=== PATIENT | female | born 2000 | race Two or more races ===

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

== ENCOUNTER 2020-05-20 00:43 | Observation (INO) | payer MEDICAID ==
[~2020-05-20] VITALS: Ht 165.1 cm; Wt 56.7 kg
[2020-05-20 01:21] VITALS: BP 124/64
[2020-05-20 02:26] LABS: Urine Amorphous Crystal FEW /hpf (None Seen); Urine Bacteria MOD /hpf (None Seen); Urine Blood Negative /uL (Negative); Urine Mucus FEW (None Seen); Urine Specific Gravity 1.017 (1.001-1.035); Urine WBC 30 /hpf (0 - 5)
[2020-05-20] MEDS ORDERED: ACETAMINOPHEN 325 MG TAB PO ONE (02:30)
[2020-05-20] MEDS ORDERED: SODIUM CHLORIDE 0.9% 500 ML IV ONE (02:30)
[2020-05-20] MEDS ORDERED: cefTRIAXone 1GM/50ML D5W 50 ML IV ONE (02:50)
[2020-05-20] MEDS ORDERED: SODIUM CHLORIDE 0.9% 1,000 ML IV SCH (03:00)
[2020-05-20] MEDS ORDERED: PREN-129 OR (05:31)
[2020-08-27] MEDS ORDERED: PREN1TAB52 PO (22:02)
== END 2020-05-20 07:38 | disposition home or self-care (01) ==
LOC: ER 00:47 → LDRP 01:07
PROVIDERS: ADMIT Obstetrics & Gynecology; ATTEND Obstetrics & Gynecology
DX: O23.42 Unspecified infection of urinary tract in pregnancy, second trimester (principal); Z20.822 Contact with and (suspected) exposure to COVID-19; O26.892 Other specified pregnancy related conditions, second trimester; R10.32 Left lower quadrant pain; R51.9 Headache, unspecified; R50.9 Fever, unspecified; O36.8320 Maternal care for abnormalities of the fetal heart rate or rhythm, second trimester, not applicable or unspecified; Z3A.20 20 weeks gestation of pregnancy
CPT/HCPCS: 36415; 59025; 76815; 81001; 81002; 87086; 87426; 94760; 96361; 96365; G0378; J0696; J7030; U0003; 96360

== ENCOUNTER → 2020-05-29 | Outpatient (CLI) | payer MEDICAID ==
[~2020-05-29] MED LIST: PREN-129 OR
== END | disposition home or self-care (01) ==
LOC: OB 14:37
PROVIDERS: ATTEND Obstetrics & Gynecology
DX: O00.01 Abdominal pregnancy with intrauterine pregnancy (principal); Z3A.21 21 weeks gestation of pregnancy
CPT/HCPCS: 76805

== ENCOUNTER 2020-08-27 08:55 | Observation (INO) | payer MEDICAID ==
[~2020-08-27] VITALS: Ht 165.1 cm; Wt 67.1 kg
[2020-08-27] MEDS ORDERED: TERBUTALINE SULFATE 1 MG/ML 1ML VIAL SC SCH (11:00)
[2020-08-27] MEDS ORDERED: PREN1TAB52 PO ×2 (22:02)
== END 2020-08-27 12:00 | disposition home or self-care (01) ==
LOC: LDRP 08:55
PROVIDERS: ADMIT Specialist; ATTEND Specialist
DX: O40.3XX0 Polyhydramnios, third trimester, not applicable or unspecified (principal); O60.03 Preterm labor without delivery, third trimester; Z3A.34 34 weeks gestation of pregnancy
CPT/HCPCS: 59025; 81002; G0378; J3105

== ENCOUNTER 2020-08-27 21:40 | Observation (INO) | payer MEDICAID ==
[~2020-08-27] VITALS: Ht 165.1 cm; Wt 67.1 kg
[2020-08-27] MEDS ORDERED: PREN1TAB52 PO ×2 (22:02)
[2020-08-27 22:26] LABS: Urine Bacteria NONE SEEN /hpf (None Seen); Urine Blood Negative /uL (Negative); Urine Specific Gravity 1.005 (1.001-1.035); Urine WBC 14 /hpf (0 - 5)
[2020-08-27 22:38] LABS: Amphetamine Screen, Urine NEGATIVE (NEGATIVE); Barbiturate Scree,Urine NEGATIVE (NEGATIVE); Benzodiazephine Screen, Urine NEGATIVE (NEGATIVE); Cannabinoid Screen, Urine NEGATIVE (NEGATIVE); Cocaine Screen, Urine NEGATIVE (NEGATIVE); Opiate Scree,Urine NEGATIVE (NEGATIVE); Phencyclidine Screen, Urine NEGATIVE (NEGATIVE)
== END 2020-08-27 23:38 | disposition home or self-care (01) ==
LOC: LDRP 21:40
PROVIDERS: ADMIT Specialist; ATTEND Specialist
DX: O60.03 Preterm labor without delivery, third trimester (principal); O23.43 Unspecified infection of urinary tract in pregnancy, third trimester; Z3A.35 35 weeks gestation of pregnancy; Z79.899 Other long term (current) drug therapy
CPT/HCPCS: 59025; 80307; 81001; 81002; G0378

== ENCOUNTER 2020-09-12 19:49 | Observation (INO) | payer MEDICAID ==
[~2020-09-12] VITALS: Ht 165.1 cm; Wt 67.1 kg
[~2020-09-12 19:49] MED LIST changes: +PREN1TAB52 PO
[2020-09-12] MEDS ORDERED: cefTRIAXone 1GM/50ML D5W 50 ML IV ONE (21:00)
[2020-09-12] MEDS ORDERED: SODIUM CHLORIDE 0.9% 1,000 ML IV SCH (21:00)
[2020-09-12 22:31] LABS: Urine Bacteria NONE SEEN /hpf (None Seen); Urine Blood TRACE /uL (Negative); Urine Specific Gravity 1.007 (1.001-1.035); Urine WBC 47 /hpf (0 - 5); Urine WBC Clumps PRESENT /hpf (None Seen)
[2020-09-12] MEDS ORDERED: CEPH-322 PO (23:24)
== END 2020-09-13 00:23 | disposition home or self-care (01) ==
LOC: LDRP 19:49
PROVIDERS: ADMIT Specialist; ATTEND Specialist
DX: O26.893 Other specified pregnancy related conditions, third trimester (principal); R10.9 Unspecified abdominal pain; Z3A.37 37 weeks gestation of pregnancy
CPT/HCPCS: 59025; 81001; 81002; 87086; 94760; 96361; 96365; G0378; J0696; J7030; 96360

== ENCOUNTER 2020-09-17 11:28 | Observation (INO) | payer MEDICAID ==
[~2020-09-17 11:28] MED LIST changes: +CEPH-322 PO
== END 2020-09-17 13:45 | disposition home or self-care (01) ==
LOC: OB 11:28 → LDRP 12:22
PROVIDERS: ADMIT Obstetrics & Gynecology; ATTEND Obstetrics & Gynecology
DX: O69.81X1 Labor and delivery complicated by cord around neck, without compression, fetus 1 (principal); Z3A.37 37 weeks gestation of pregnancy
CPT/HCPCS: 59025; 76818; 81002; G0378

== ENCOUNTER 2020-09-20 08:51 | Observation (INO) | payer MEDICAID | END 2020-09-20 10:00 | disposition home or self-care (01) | LOC: LDRP 08:51 | PROVIDERS: ADMIT Obstetrics & Gynecology; ATTEND Obstetrics & Gynecology | DX: O69.81X1 Labor and delivery complicated by cord around neck, without compression, fetus 1 (principal); Z3A.38 38 weeks gestation of pregnancy; O62.9 Abnormality of forces of labor, unspecified | CPT/HCPCS: 59025; 76818; 81002; G0378 ==

== ENCOUNTER 2020-09-23 13:25 | Observation (INO) | payer MEDICAID ==
[~2020-09-23] VITALS: Ht 165.1 cm; Wt 66.2 kg
== END 2020-09-23 15:08 | disposition home or self-care (01) ==
LOC: LDRP 13:25
PROVIDERS: ADMIT Obstetrics & Gynecology; ATTEND Obstetrics & Gynecology
DX: O69.81X0 Labor and delivery complicated by cord around neck, without compression, not applicable or unspecified (principal); Z3A.38 38 weeks gestation of pregnancy
CPT/HCPCS: 59025; 76818; 81002; 94760; G0378

== ENCOUNTER 2020-09-26 13:30 | Observation (INO) | payer MEDICAID ==
[~2020-09-26 13:30] MED LIST changes: -CEPH-322 PO
== END 2020-09-26 15:27 | disposition home or self-care (01) ==
LOC: LDRP 13:30
PROVIDERS: ADMIT Specialist; ATTEND Specialist
DX: O69.81X0 Labor and delivery complicated by cord around neck, without compression, not applicable or unspecified (principal); Z3A.39 39 weeks gestation of pregnancy
CPT/HCPCS: 59025; 76818; 81002; 94760; G0378

== ENCOUNTER 2020-09-30 13:28 | Observation (INO) | payer MEDICAID | END 2020-09-30 15:20 | disposition home or self-care (01) | LOC: LDRP 13:28 | PROVIDERS: ADMIT Obstetrics & Gynecology; ATTEND Obstetrics & Gynecology | DX: O69.81X0 Labor and delivery complicated by cord around neck, without compression, not applicable or unspecified (principal); Z3A.39 39 weeks gestation of pregnancy | CPT/HCPCS: 59025; 76818; 81002; G0378 ==

== ENCOUNTER 2020-10-01 06:50 | Inpatient (IN) | payer MEDICAID ==
[~2020-10-01] VITALS: Ht 30.5 cm; Wt 0.5 kg
[~2020-10-01 06:50] MED LIST changes: -PREN-129 OR
[2020-10-01] MEDS ORDERED: PROMETHAZINE HCL 25 MG/ML 1ML IM PRN (11:00)
[2020-10-01] MEDS ORDERED: PHISODERM TOP SOLN 240ML BTL TOP PRN (11:00)
[2020-10-01] MEDS ORDERED: NALBUPHINE HCL 10 MG/1ml INJECTION IV PRN (11:00)
[2020-10-01] MEDS ORDERED: PENICILLIN G POT 5MIL/D5 50ML 50 ML IV ONE (11:00)
[2020-10-01] MEDS ORDERED: DERMOPLAST 60ML BOTTLE TOP PRN (11:00)
[2020-10-01] MEDS ORDERED: LIDOCAINE 2%HCL (LOCAL ANESTH.) INJ 20ML MDV IJ PRN (11:00)
[2020-10-01] MEDS ORDERED: WITCH HAZEL-GLYCERIN PAD TOP PRN (11:00)
[2020-10-01] MEDS ORDERED: miSOPROStol 50 MCG per PRE-CUT 1/2 TAB PO PRN (11:00)
[2020-10-01] MEDS: LACTATED RINGER'S 1,000 ML IV SCH ×3 (11:20→22:11)
[2020-10-01 12:38] LABS: Basophils # (auto) 0 10 ^3/uL (0-0.2); Basophils % (auto) 0.2 % (0.0-2.0); Eosinophils # (auto) 0 10 ^3/uL (0-0.8); Eosinophils % (auto) 0.3 % (0.0-7.0); Hematocrit 32.1 % (36.0-46.0); Lymphocytes # (auto) 1.8 10 ^3/uL (0.4-5.4); Mean Corpuscular Hemoglobin 27.7 pg (28.0-32.0); Mean Corpuscular Hgb Conc. 34.3 g/dL (32.0-36.0); Mean Corpuscular Volume 80.8 fL (80.0-100.0); Monocytes # (auto) 0.5 10 ^3/uL (0-1.3); Monocytes % (auto) 3.6 % (0.0-12.0); Neutrophils # (auto) 10.3 10 ^3/uL (1.6-8.6); Neutrophils % (auto) 81.9 % (37.0-80.0); Red Blood Cells 3.97 10^6/uL (4.0-5.20); Red Cell Distribution Width 15.6 % (11.8-14.3); White Blood Cell 12.6 10^3/uL (4.4-10.8)
[2020-10-01 12:49] LABS: Potassium 3.5 mmol/L (3.5-5.1)
[2020-10-01 12:55] LABS: Albumin 2.9 g/dL (3.4-5.0); BUN/Creatinine Ratio 6.5; Bilirubin, Total 0.8 mg/dL (0.2-1.0); Calcium 8.4 mg/dL (8.5-10.1); Total Protein 6.6 g/dL (6.4-8.2)
[2020-10-01 13:21] LABS: Urine Bacteria FEW /hpf (None Seen); Urine Blood TRACE /uL (Negative); Urine Mucus FEW (None Seen); Urine Specific Gravity 1.011 (1.001-1.035); Urine WBC 25 /hpf (0 - 5)
[2020-10-01 13:33] LABS: Alcohol, Urine < 3.0 mg/dL (0-10); Amphetamine Screen, Urine NEGATIVE (NEGATIVE); Barbiturate Scree,Urine NEGATIVE (NEGATIVE); Benzodiazephine Screen, Urine NEGATIVE (NEGATIVE); Cannabinoid Screen, Urine NEGATIVE (NEGATIVE); Cocaine Screen, Urine NEGATIVE (NEGATIVE); Opiate Scree,Urine NEGATIVE (NEGATIVE); Phencyclidine Screen, Urine NEGATIVE (NEGATIVE)
[2020-10-01 13:33] LABS: INR 0.92 (0.9-1.15); Partial Thromboplastin Time 26.2 sec (23.0-31.2)
[2020-10-01] MEDS ORDERED: LACT. RINGERS/OXYTOCIN 20UNITS 500 ML IV ONE ×3 (13:45→23:45)
[2020-10-01] MEDS ORDERED: BUTORPHANOL TARTRATE 2 MG/1 ML VIAL IV PRN ×2 (14:45)
[2020-10-01] MEDS ORDERED: LACTATED RINGER'S 1,000 ML IV ONE (15:30)
[2020-10-01] MEDS ORDERED: LIDOCAINE HCL 2 %PF INJ 10ML AMP IJ ONE (15:30)
[2020-10-01] MEDS ORDERED: fentaNYL CITRATE 100 MCG/2 ML VL IV ONE (15:30)
[2020-10-01] MEDS ORDERED: ROPIVACAINE HCL 200 ML EPI SCH (15:30)
[2020-10-01] MEDS ORDERED: NALOXONE HCL 0.4 MG/ML VIAL IV ONE (15:30)
[2020-10-01] MEDS ORDERED: ePHEDrine SULFATE 50 MG/ML AMP IV ONE (15:30)
[2020-10-01] MEDS: PENICILLIN G POTASSIUM 2,500,000 UNITS in D5W 5% 50 ML IV SCH ×2 (16:49→21:23)
[2020-10-01] MEDS ORDERED: ACETAMINOPHEN 325 MG TAB PO PRN (23:45)
[2020-10-02] MEDS ORDERED: LACT. RINGERS/OXYTOCIN 20UNITS 500 ML IV ONE (00:15)
[2020-10-02] MEDS: IBUPROFEN 600 MG TAB PO PRN ×2 (01:15→08:11)
[2020-10-02 03:06] VITALS: BP 109/55
[2020-10-02 07:09] VITALS: BP 109/58
[2020-10-02] MEDS: DOCUSATE SOD 100 MG CAP PO SCH ×2 (11:14→22:10)
[2020-10-02 11:15] VITALS: BP 112/68
[2020-10-02 15:08] VITALS: BP 118/60
[2020-10-02 19:00] VITALS: BP 115/66
[2020-10-02 23:00] VITALS: BP 111/64
[2020-10-03 03:00] VITALS: BP 107/52
[2020-10-03 07:02] VITALS: BP 120/74
[2020-10-03 10:50] VITALS: BP 120/74
[2020-10-03 11:00] VITALS: BP 116/72
== END 2020-10-03 12:20 | disposition home or self-care (01) | DRG 560 ==
LOC: LDRP 06:50 → OBSVTOIN 10:35 → LDRP 11:32
PROVIDERS: ADMIT Specialist; ATTEND Specialist
PROC: 10E0XZZ Delivery of Products of Conception, External Approach (ICD-10-PCS; principal; 2020-10-01)
PROC: 3E0P7VZ Introduction of Hormone into Female Reproductive, Via Natural or Artificial Opening (ICD-10-PCS; 2020-10-01)
PROC: 10907ZC Drainage of Amniotic Fluid, Therapeutic from Products of Conception, Via Natural or Artificial Opening (ICD-10-PCS; 2020-10-01)
PROC: 0KQM0ZZ Repair Perineum Muscle, Open Approach (ICD-10-PCS; 2020-10-01)
PROC: 3E0R3BZ Introduction of Anesthetic Agent into Spinal Canal, Percutaneous Approach (ICD-10-PCS; 2020-10-01)
PROC: 00HU33Z Insertion of Infusion Device into Spinal Canal, Percutaneous Approach (ICD-10-PCS; 2020-10-01)
DX: O69.81X0 Labor and delivery complicated by cord around neck, without compression, not applicable or unspecified (principal); O70.1 Second degree perineal laceration during delivery; Z20.822 Contact with and (suspected) exposure to COVID-19; Z37.0 Single live birth; Z3A.39 39 weeks gestation of pregnancy
CPT/HCPCS: 36415; 59025; 59409; 62282; 76815; 80053; 80307; 81001; 81002; 84112; 85025; 85049; 85610; 85730; 86850; 86900; 86901; 87426; 94760; 96360; 96361; 96365; 96366; G0378; J2540; J2590; J7060

== ENCOUNTER 2021-08-22 20:53 | Emergency (ER) | payer MEDICAID ==
[~2021-08-22] VITALS: Ht 165.1 cm; Wt 57.6 kg
[2021-08-22 21:50] LABS: Basophils # (auto) 0.1 10 ^3/uL (0-0.2); Basophils % (auto) 0.6 % (0.0-2.0); Eosinophils # (auto) 0.1 10 ^3/uL (0-0.8); Eosinophils % (auto) 1.4 % (0.0-7.0); Hematocrit 34.1 % (36.0-46.0); Hemoglobin 11.5 g/dL (12.2-16.2); Lymphocytes # (auto) 1.3 10 ^3/uL (0.4-5.4); Lymphocytes % (auto) 14.4 % (10.0-50.0); Mean Corpuscular Hemoglobin 27.2 pg (28.0-32.0); Mean Corpuscular Hgb Conc. 33.7 g/dL (32.0-36.0); Mean Corpuscular Volume 80.7 fL (80.0-100.0); Monocytes # (auto) 0.6 10 ^3/uL (0-1.3); Monocytes % (auto) 7.1 % (0.0-12.0); Neutrophils # (auto) 6.7 10 ^3/uL (1.6-8.6); Neutrophils % (auto) 76.5 % (37.0-80.0); Red Blood Cells 4.23 10^6/uL (4.0-5.20); Red Cell Distribution Width 13.4 % (11.8-14.3); White Blood Cell 8.8 10^3/uL (4.4-10.8)
[2021-08-22 22:08] LABS: BUN/Creatinine Ratio 13.1; Calcium 9.2 mg/dL (8.5-10.1); Potassium 4.1 mmol/L (3.5-5.1)
[2021-08-22 22:27] LABS: Urine Bacteria FEW /hpf (None Seen); Urine Blood 3+ /uL (Negative); Urine Specific Gravity 1.011 (1.001-1.035); Urine WBC 43 /hpf (0 - 5)
[2021-08-23 04:33] VITALS: BP 120/66
== END 2021-08-23 05:44 | disposition home or self-care (01) ==
LOC: ER 21:15
DX: N93.8 Other specified abnormal uterine and vaginal bleeding (principal)
CPT/HCPCS: 36415; 80048; 81001; 84702; 85025; 86850; 86900; 86901

== ENCOUNTER 2021-10-23 21:29 | Emergency (ER) | payer MEDICAID | END 2021-10-24 01:55 | disposition left against medical advice (07) | LOC: ER 21:29 | DX: O20.8 Other hemorrhage in early pregnancy (principal); Z3A.00 Weeks of gestation of pregnancy not specified; Z53.21 Procedure and treatment not carried out due to patient leaving prior to being seen by health care provider ==

== ENCOUNTER 2021-12-22 20:13 | Emergency (ER) | payer MEDICAID ==
[~2021-12-22] VITALS: Ht 165.1 cm; Wt 54.5 kg
[2021-12-22 20:42] VITALS: BP 106/72
[2021-12-22] MEDS ORDERED: ACETAMINOPHEN 325 MG TAB PO ONE (21:45)
[2021-12-22 22:04] LABS: Urine Amorphous Crystal FEW /hpf (None Seen); Urine Bacteria FEW /hpf (None Seen); Urine Blood Negative /uL (Negative); Urine Mucus FEW (None Seen); Urine Specific Gravity 1.016 (1.001-1.035); Urine WBC 10 /hpf (0 - 5)
[2021-12-22 23:15] LABS: Basophils # (auto) 0 10 ^3/uL (0-0.2); Basophils % (auto) 0.4 % (0.0-2.0); Eosinophils # (auto) 0.1 10 ^3/uL (0-0.8); Eosinophils % (auto) 0.6 % (0.0-7.0); Hematocrit 32.7 % (36.0-46.0); Hemoglobin 10.7 g/dL (12.2-16.2); Lymphocytes # (auto) 0.9 10 ^3/uL (0.4-5.4); Lymphocytes % (auto) 9.8 % (10.0-50.0); Mean Corpuscular Hemoglobin 26.2 pg (28.0-32.0); Mean Corpuscular Hgb Conc. 32.8 g/dL (32.0-36.0); Monocytes # (auto) 0.5 10 ^3/uL (0-1.3); Monocytes % (auto) 5.1 % (0.0-12.0); Neutrophils # (auto) 7.9 10 ^3/uL (1.6-8.6); Neutrophils % (auto) 84.1 % (37.0-80.0); Red Blood Cells 4.09 10^6/uL (4.0-5.20); Red Cell Distribution Width 15.1 % (11.8-14.3); White Blood Cell 9.5 10^3/uL (4.4-10.8)
[2021-12-22 23:34] LABS: Albumin 3.2 g/dL (3.4-5.0); Calcium 8.5 mg/dL (8.5-10.1); Potassium 3.8 mmol/L (3.5-5.1)
[2021-12-22 23:36] LABS: BUN/Creatinine Ratio 15.6
[2021-12-22 23:39] LABS: Bilirubin, Total 0.8 mg/dL (0.2-1.0); Total Protein 7.3 g/dL (6.4-8.2)
[2021-12-23] MEDS ORDERED: NITR-87 PO (02:59)
[2021-12-23] MEDS ORDERED: NITROFURANTOIN 100 mg CAP PO ONE (03:00)
== END 2021-12-23 05:03 | disposition home or self-care (01) ==
LOC: ER 20:16
DX: O23.42 Unspecified infection of urinary tract in pregnancy, second trimester (principal); N39.0 Urinary tract infection, site not specified; R51.9 Headache, unspecified; Z79.899 Other long term (current) drug therapy; Z3A.17 17 weeks gestation of pregnancy; Z20.822 Contact with and (suspected) exposure to COVID-19
CPT/HCPCS: 36415; 80053; 81001; 81025; 84702; 85025

== ENCOUNTER → 2021-12-29 | Outpatient (CLI) | payer MEDICAID ==
[~2021-12-29] MED LIST changes: +NITR-87 PO
== END | disposition home or self-care (01) ==
LOC: LAB 13:36
PROVIDERS: ATTEND Obstetrics & Gynecology
DX: Z34.80 Encounter for supervision of other normal pregnancy, unspecified trimester (principal); Z3A.00 Weeks of gestation of pregnancy not specified

== ENCOUNTER 2022-02-17 09:23 | Observation (INO) | payer MEDICAID ==
[~2022-02-17] VITALS: Ht 165.1 cm; Wt 56.0 kg
[2022-02-17 09:52] VITALS: BP 105/70
[2022-02-17] MEDS ORDERED: ceFAZolin 2 GM in D5W 5% 100 ML IV ONE (12:15)
[2022-02-17] MEDS ORDERED: LACTATED RINGER'S 1,000 ML IV ONE ×2 (12:15)
[2022-02-17 12:51] LABS: Urine Bacteria FEW /hpf (None Seen); Urine Blood 1+ /uL (Negative); Urine Specific Gravity 1.025 (1.001-1.035); Urine WBC 7 /hpf (0 - 5)
[2022-02-17] MEDS ORDERED: NALBUPHINE HCL 10 MG/1ml INJECTION IV ONE (13:15)
[2022-02-17 13:29] LABS: Basophils # (auto) 0 10 ^3/uL (0-0.2); Eosinophils # (auto) 0 10 ^3/uL (0-0.8); Eosinophils % (auto) 0.2 % (0.0-7.0); Hemoglobin 9.9 g/dL (12.2-16.2); Lymphocytes # (auto) 0.8 10 ^3/uL (0.4-5.4); Monocytes # (auto) 0.4 10 ^3/uL (0-1.3); Neutrophils # (auto) 5.7 10 ^3/uL (1.6-8.6); Nucleated Red Blood Cells % 0.1 %; Red Cell Distribution Width 15.1 % (11.8-14.3); White Blood Cell 6.9 10^3/uL (4.4-10.8)
[2022-02-17 13:31] LABS: Basophils % (auto) 0.3 % (0.0-2.0); Hematocrit 30.5 % (36.0-46.0); Lymphocytes % (auto) 11.7 % (10.0-50.0); Mean Corpuscular Hemoglobin 25.6 pg (28.0-32.0); Mean Corpuscular Hgb Conc. 32.4 g/dL (32.0-36.0); Mean Corpuscular Volume 79.2 fL (80.0-100.0); Monocytes % (auto) 5.2 % (0.0-12.0); Neutrophils % (auto) 82.6 % (37.0-80.0); Red Blood Cells 3.85 10^6/uL (4.0-5.20)
[2022-02-17 14:18] LABS: Albumin 2.9 g/dL (3.4-5.0); BUN/Creatinine Ratio 8.6; Bilirubin, Total 0.5 mg/dL (0.2-1.0); Calcium 8.5 mg/dL (8.5-10.1); Potassium 3.2 mmol/L (3.5-5.1); Total Protein 7.2 g/dL (6.4-8.2)
[2022-02-17] MEDS ORDERED: NALBUPHINE HCL 10 MG/1ml INJECTION IV PRN (16:15)
[2022-02-17] MEDS ORDERED: POTASSIUM CHL 20 Meq TABLET PO ONE ×2 (17:30→17:34)
== END 2022-02-17 20:00 | disposition home or self-care (01) ==
LOC: ER 09:23 → LDRP 10:27
PROVIDERS: ADMIT Obstetrics & Gynecology; ATTEND Obstetrics & Gynecology
DX: O99.891 Other specified diseases and conditions complicating pregnancy (principal); Z20.822 Contact with and (suspected) exposure to COVID-19; N13.30 Unspecified hydronephrosis; M54.9 Dorsalgia, unspecified; O99.512 Diseases of the respiratory system complicating pregnancy, second trimester; J10.1 Influenza due to other identified influenza virus with other respiratory manifestations; O21.2 Late vomiting of pregnancy; O99.112 Other diseases of the blood and blood-forming organs and certain disorders involving the immune mechanism complicating pregnancy, second trimester; D84.9 Immunodeficiency, unspecified; O26.892 Other specified pregnancy related conditions, second trimester; R50.9 Fever, unspecified; Z3A.25 25 weeks gestation of pregnancy
CPT/HCPCS: 36415; 59025; 76775; 76805; 80053; 81001; 81002; 85025; 87426; 87804; 94760; 96361; 96365; 96366; 96375; 96376; 99284; G0378; J0690; J2300; J7060; 96360; 96374

== ENCOUNTER 2022-03-24 22:00 | Observation (INO) | payer MEDICAID ==
[~2022-03-24] VITALS: Ht 165.1 cm; Wt 60.3 kg
[2022-03-24] MEDS ORDERED: SODIUM CITR/CITRIC ACID ORAL SOLN 30 ML PO SCH (22:40)
[2022-03-24 23:00] LABS: Urine Blood Negative /uL (Negative); Urine Specific Gravity 1.017 (1.001-1.035)
== END 2022-03-24 23:55 | disposition home or self-care (01) ==
LOC: LDRP 22:00
PROVIDERS: ADMIT Obstetrics & Gynecology; ATTEND Obstetrics & Gynecology
DX: O26.893 Other specified pregnancy related conditions, third trimester (principal); R10.10 Upper abdominal pain, unspecified; R10.13 Epigastric pain; Z3A.30 30 weeks gestation of pregnancy
CPT/HCPCS: 59025; 81002; 81003; G0378; 81001

== ENCOUNTER → 2022-05-07 | Outpatient (CLI) | payer MEDICAID ==
[2022-05-07 11:41] LABS: Basophils # (auto) 0 10 ^3/uL (0-0.2); Eosinophils # (auto) 0 10 ^3/uL (0-0.8); Hemoglobin 9.3 g/dL (12.2-16.2); Lymphocytes # (auto) 1.2 10 ^3/uL (0.4-5.4); Lymphocytes % (auto) 12.7 % (10.0-50.0); Monocytes # (auto) 0.3 10 ^3/uL (0-1.3); White Blood Cell 9.6 10^3/uL (4.4-10.8)
[2022-05-07 11:43] LABS: Basophils % (auto) 0.2 % (0.0-2.0); Eosinophils % (auto) 0.5 % (0.0-7.0); Hematocrit 29.2 % (36.0-46.0); Mean Corpuscular Hemoglobin 23.6 pg (28.0-32.0); Mean Corpuscular Hgb Conc. 31.9 g/dL (32.0-36.0); Mean Corpuscular Volume 73.9 fL (80.0-100.0); Monocytes % (auto) 3.4 % (0.0-12.0); Neutrophils % (auto) 83.2 % (37.0-80.0); Nucleated Red Blood Cells % 0.1 %; Red Blood Cells 3.95 10^6/uL (4.0-5.20); Red Cell Distribution Width 18.6 % (11.8-14.3)
[2022-05-08 07:06] LABS: RPR Non Reactive (Non Reactive)
== END | disposition home or self-care (01) ==
LOC: LAB 11:17
PROVIDERS: ATTEND Obstetrics & Gynecology
DX: Z34.80 Encounter for supervision of other normal pregnancy, unspecified trimester (principal); Z3A.00 Weeks of gestation of pregnancy not specified
CPT/HCPCS: 36415; 84112; 85025; 86592

== ENCOUNTER 2022-05-12 21:05 | Observation (INO) | payer MEDICAID ==
[2022-05-12] MEDS ORDERED: CEPH-510 PO (22:12)
[2022-05-12 22:16] LABS: Urine Bacteria MANY /hpf (None Seen); Urine Blood 1+ /uL (Negative); Urine Mucus FEW (None Seen); Urine WBC 106 /hpf (0 - 5)
== END 2022-05-12 22:34 | disposition home or self-care (01) ==
LOC: LDRP 21:05
PROVIDERS: ADMIT Obstetrics & Gynecology; ATTEND Obstetrics & Gynecology
DX: O23.43 Unspecified infection of urinary tract in pregnancy, third trimester (principal); O26.853 Spotting complicating pregnancy, third trimester; O46.93 Antepartum hemorrhage, unspecified, third trimester; N93.9 Abnormal uterine and vaginal bleeding, unspecified; O26.893 Other specified pregnancy related conditions, third trimester; R10.30 Lower abdominal pain, unspecified; Z3A.37 37 weeks gestation of pregnancy
CPT/HCPCS: 59025; 81001; 81002; 87086; 94760; G0378

== ENCOUNTER 2022-06-01 14:56 | Inpatient (IN) | payer MEDICAID ==
[~2022-06-01] VITALS: Ht 165.1 cm; Wt 66.7 kg
[~2022-06-01 14:56] MED LIST changes: +CEPH-510 PO; -NITR-87 PO
[2022-06-01] MEDS ORDERED: PHISODERM TOP SOLN 240ML BTL TOP PRN (16:15)
[2022-06-01] MEDS ORDERED: WITCH HAZEL-GLYCERIN PAD TOP PRN (16:15)
[2022-06-01] MEDS ORDERED: LIDOCAINE 2%HCL (LOCAL ANESTH.) INJ 20ML MDV IJ PRN (16:15)
[2022-06-01] MEDS ORDERED: PROMETHAZINE HCL 25 MG/ML 1ML IV PRN (16:15)
[2022-06-01] MEDS ORDERED: BUTORPHANOL TARTRATE 2 MG/1 ML VIAL IV PRN ×2 (16:15)
[2022-06-01] MEDS ORDERED: DERMOPLAST 60ML BOTTLE TOP PRN (16:15)
[2022-06-01] MEDS ORDERED: LACT. RINGERS/OXYTOCIN 20UNITS 500 ML IV ONE ×4 (17:00→22:15)
[2022-06-01 17:08] LABS: Basophils # (auto) 0 10 ^3/uL (0-0.2); Basophils % (auto) 0.2 % (0.0-2.0); Eosinophils # (auto) 0 10 ^3/uL (0-0.8); Eosinophils % (auto) 0.1 % (0.0-7.0); Hematocrit 32.2 % (36.0-46.0); Lymphocytes # (auto) 1.2 10 ^3/uL (0.4-5.4); Mean Corpuscular Hemoglobin 22.3 pg (28.0-32.0); Mean Corpuscular Hgb Conc. 31.2 g/dL (32.0-36.0); Mean Corpuscular Volume 71.3 fL (80.0-100.0); Monocytes # (auto) 0.5 10 ^3/uL (0-1.3); Neutrophils # (auto) 10.4 10 ^3/uL (1.6-8.6); Neutrophils % (auto) 85.7 % (37.0-80.0); Nucleated Red Blood Cells % 0.1 %; Red Blood Cells 4.51 10^6/uL (4.0-5.20); White Blood Cell 12.1 10^3/uL (4.4-10.8)
[2022-06-01 17:10] LABS: Red Cell Distribution Width 20.1 % (11.8-14.3)
[2022-06-01] MEDS ORDERED: NALOXONE HCL 0.4 MG/ML VIAL IV ONE ×2 (17:15→20:00)
[2022-06-01] MEDS ORDERED: fentaNYL CITRATE 100 MCG/2 ML VL IV ONE ×2 (17:15→20:00)
[2022-06-01] MEDS ORDERED: LIDOCAINE 1%-Mpf/Epinephrine 1:200,000 IJ ONE (17:15)
[2022-06-01] MEDS ORDERED: ROPIVACAINE HCL 200 ML EPI SCH ×2 (17:15→20:00)
[2022-06-01] MEDS ORDERED: LACTATED RINGER'S 1,000 ML IV ONE (17:15)
[2022-06-01] MEDS ORDERED: ePHEDrine SULFATE 50 MG/ML AMP IV ONE ×2 (17:15→20:00)
[2022-06-01] MEDS ORDERED: LIDOCAINE HCL 2 %PF INJ 10ML AMP IJ ONE (17:15)
[2022-06-01] MEDS ORDERED: LACTATED RINGER'S 500 ML IV ONE ×2 (17:15→20:00)
[2022-06-01 17:20] LABS: Albumin 2.7 g/dL (3.4-5.0); Calcium 8.8 mg/dL (8.5-10.1); Potassium 3.7 mmol/L (3.5-5.1)
[2022-06-01 17:22] LABS: BUN/Creatinine Ratio 10.4
[2022-06-01] MEDS: LACTATED RINGER'S 1,000 ML IV SCH ×2 (17:22→22:04)
[2022-06-01 17:25] LABS: Bilirubin, Total 0.9 mg/dL (0.2-1.0); Total Protein 7.4 g/dL (6.4-8.2)
[2022-06-01 17:26] LABS: INR 0.91 (0.9-1.15); Partial Thromboplastin Time 28.8 sec (24.6-33.4)
[2022-06-01 18:48] LABS: Urine Bacteria FEW /hpf (None Seen); Urine Blood Negative /uL (Negative); Urine Specific Gravity 1.015 (1.001-1.035); Urine WBC 56 /hpf (0 - 5)
[2022-06-01] MEDS ORDERED: Lidocaine W-Epinephrine 1.5%-1:200,000 INJ 10ml Vial ONE (18:51)
[2022-06-01 18:53] LABS: Alcohol, Urine < 3.0 mg/dL (0-10); Amphetamine Screen, Urine NEGATIVE (NEGATIVE); Barbiturate Scree,Urine NEGATIVE (NEGATIVE); Benzodiazephine Screen, Urine NEGATIVE (NEGATIVE); Cannabinoid Screen, Urine NEGATIVE (NEGATIVE); Cocaine Screen, Urine NEGATIVE (NEGATIVE); Opiate Scree,Urine NEGATIVE (NEGATIVE); Phencyclidine Screen, Urine NEGATIVE (NEGATIVE)
[2022-06-01] MEDS ORDERED: SODIUM CHLORIDE 0.9% 500 ML IV PRN (20:00)
[2022-06-01] MEDS ORDERED: miSOPROStol 100 mcg TAB SL PRN (21:45)
[2022-06-01] MEDS ORDERED: TRANEXAMIC ACID 1,000 MG in SODIUM CHL 0.9% 100 ML IV PRN (21:45)
[2022-06-01] MEDS ORDERED: ACETAMINOPHEN 325 MG TAB PO PRN (21:45)
[2022-06-01] MEDS ORDERED: diphenhdrAMINE HCL 50 MG/1 ML VL IV PRN (21:45)
[2022-06-01] MEDS ORDERED: CARBOPROST TROMETHAMINE 250 MCG/1ML VIAL IM PRN (21:45)
[2022-06-01] MEDS ORDERED: METHYLERGONOVINE MALEATE 0.2 MG/ML AMP IM PRN (21:45)
[2022-06-01] MEDS ORDERED: ONDANSETRON HCL 4 MG/2 ML VIAL IV PRN (21:45)
[2022-06-01] MEDS ORDERED: MAALOX PLUS or MAALOX 30 ML PO PRN (21:45)
[2022-06-01] MEDS ORDERED: DIPHENOXYLATE W/ATROPINE 2.5 MG TAB PO SCH (22:00)
[2022-06-01] MEDS ORDERED: MINERAL OIL TOPICAL 10ml TOP PRN (23:00)
[2022-06-02] MEDS ORDERED: MINERAL OIL TOPICAL 10ml TOP ONE ×2 (01:09→01:12)
[2022-06-02] MEDS: ACETAMINOPHEN 325 MG TAB PO PRN ×2 (03:07→16:57)
[2022-06-02] MEDS: IBUPROFEN 600 MG TAB PO PRN ×2 (03:08→13:35)
[2022-06-02 07:00] VITALS: BP 100/68
[2022-06-02 11:00] VITALS: BP 105/62
[2022-06-02 14:40] VITALS: BP 98/59
[2022-06-02] MEDS ORDERED: IBU600T PO (17:57)
[2022-06-02] MEDS ORDERED: TUCKS TOP (17:57)
[2022-06-02] MEDS ORDERED: DOCU100C10 PO (17:57)
[2022-06-02] MEDS ORDERED: ACET325T10 PO (17:57)
[2022-06-02] MEDS ORDERED: ASCO-56 PO (17:59)
[2022-06-02] MEDS ORDERED: FER325T PO (17:59)
[2022-06-02 18:30] VITALS: BP 107/74
[2022-06-02] MEDS ORDERED: DOCUSATE SOD 100 MG CAP PO SCH (22:00)
[2022-06-02 23:20] VITALS: BP 113/79
[2022-06-03] MEDS ORDERED: PHEN1OIN PR (01:05)
[2022-06-03 03:15] VITALS: BP 112/73
[2022-06-03 06:43] LABS: Basophils # (auto) 0 10 ^3/uL (0-0.2); Eosinophils # (auto) 0.1 10 ^3/uL (0-0.8); Hematocrit 24.1 % (36.0-46.0); Hemoglobin 7.9 g/dL (12.2-16.2); Lymphocytes # (auto) 1.7 10 ^3/uL (0.4-5.4); Monocytes # (auto) 0.6 10 ^3/uL (0-1.3)
[2022-06-03 06:45] LABS: Basophils % (auto) 0.4 % (0.0-2.0); Lymphocytes % (auto) 12.3 % (10.0-50.0); Mean Corpuscular Hemoglobin 23.5 pg (28.0-32.0); Mean Corpuscular Hgb Conc. 32.8 g/dL (32.0-36.0); Mean Corpuscular Volume 71.7 fL (80.0-100.0); Monocytes % (auto) 4.2 % (0.0-12.0); Neutrophils # (auto) 11.6 10 ^3/uL (1.6-8.6); Neutrophils % (auto) 82.1 % (37.0-80.0); Red Blood Cells 3.36 10^6/uL (4.0-5.20); White Blood Cell 14.1 10^3/uL (4.4-10.8)
[2022-06-03 06:47] LABS: Red Cell Distribution Width 20.4 % (11.8-14.3)
[2022-06-03 07:07] LABS: Rubella Antibodies, IgG 1.25 index (Immune >0.99)
[2022-06-03 07:20] VITALS: BP 114/64
[2022-06-03 08:06] LABS: RPR Non Reactive (Non Reactive)
[2022-06-03] MEDS: ACETAMINOPHEN 325 MG TAB PO PRN (09:35)
== END 2022-06-03 12:35 | disposition home or self-care (01) | DRG 560 ==
LOC: LDRP 14:56 → UNDOADMOB 14:56 → LDRP 15:02 → OBSVTOIN 16:16 → LDRP 16:40
PROVIDERS: ADMIT Obstetrics & Gynecology; ATTEND Obstetrics & Gynecology
PROC: 10E0XZZ Delivery of Products of Conception, External Approach (ICD-10-PCS; principal; 2022-06-02)
PROC: 0KQM0ZZ Repair Perineum Muscle, Open Approach (ICD-10-PCS; 2022-06-02)
PROC: 3E0R3BZ Introduction of Anesthetic Agent into Spinal Canal, Percutaneous Approach (ICD-10-PCS; 2022-06-02)
PROC: 00HU33Z Insertion of Infusion Device into Spinal Canal, Percutaneous Approach (ICD-10-PCS; 2022-06-02)
DX: O69.1XX0 Labor and delivery complicated by cord around neck, with compression, not applicable or unspecified (principal); Z37.0 Single live birth; D50.9 Iron deficiency anemia, unspecified; Z20.822 Contact with and (suspected) exposure to COVID-19; O70.1 Second degree perineal laceration during delivery; O99.02 Anemia complicating childbirth; Z3A.40 40 weeks gestation of pregnancy
CPT/HCPCS: 36415; 59025; 59409; 62282; 80053; 80307; 81001; 81002; 85025; 85610; 85730; 86592; 86762; 86850; 86900; 86901; 87426; 94760; 94762; 96360; 96361; 96365; 96366; 96374; G0378; J2405; J2590

== ENCOUNTER 2022-11-12 23:52 | Emergency (ER) | payer MEDICAID ==
[~2022-11-12] VITALS: Ht 165.1 cm; Wt 57.8 kg
[~2022-11-12 23:52] MED LIST changes: +ACET-1882 PO; +ASCO-56 PO; -CEPH-510 PO; +DOCU-265 PO; +FER325T PO; +IBU600T PO; +PHEN1OIN PR; +TUCKS TOP
[2022-11-13 00:17] LABS: Basophils # (auto) 0 10 ^3/uL (0-0.2); Basophils % (auto) 0.6 % (0.0-2.0); Eosinophils # (auto) 0.1 10 ^3/uL (0-0.8); Monocytes # (auto) 0.4 10 ^3/uL (0-1.3); Nucleated Red Blood Cells % 0.1 %; Red Blood Cells 4.42 10^6/uL (4.0-5.20); White Blood Cell 7.7 10^3/uL (4.4-10.8)
[2022-11-13 00:19] LABS: Eosinophils % (auto) 1.5 % (0.0-7.0); Hematocrit 30.4 % (36.0-46.0); Hemoglobin 9.4 g/dL (12.2-16.2); Lymphocytes % (auto) 26.2 % (10.0-50.0); Mean Corpuscular Hemoglobin 21.3 pg (28.0-32.0); Mean Corpuscular Volume 68.8 fL (80.0-100.0); Monocytes % (auto) 4.6 % (0.0-12.0); Neutrophils # (auto) 5.1 10 ^3/uL (1.6-8.6); Neutrophils % (auto) 67.1 % (37.0-80.0); Red Cell Distribution Width 19.7 % (11.8-14.3)
[2022-11-13 00:27] LABS: Albumin 3.6 g/dL (3.4-5.0); BUN/Creatinine Ratio 18.3 (10.0-20.0); Calcium 8.7 mg/dL (8.5-10.1); Magnesium 2.1 mg/dL (1.6-2.6); Potassium 3.6 mmol/L (3.5-5.1)
[2022-11-13 00:31] LABS: Bilirubin, Total 0.8 mg/dL (0.2-1.0); Total Protein 7.6 g/dL (6.4-8.2)
[2022-11-13 01:15] LABS: Urine Bacteria FEW /hpf (None Seen); Urine Blood Negative /uL (Negative); Urine Clarity HAZY (Clear); Urine Color Yellow (Yellow); Urine Hyaline Cast FEW /lpf (0 - 2); Urine Mucus FEW (None Seen); Urine Protein, UAD 1+ (Negative); Urine Specific Gravity 1.027 (1.001-1.035); Urine WBC 30 /hpf (0 - 5); Urine pH 6.5 (5.0-8.0)
[2022-11-13] MEDS ORDERED: FER325T PO (01:30)
[2022-11-13] MEDS ORDERED: NITR-87 PO (01:30)
[2022-11-13 02:03] VITALS: BP 104/56; PULSE 69; RESP 18; TEMP 97.9; O2SAT 97
== END 2022-11-13 01:30 | disposition home or self-care (01) ==
LOC: ER 23:52
DX: R07.9 Chest pain, unspecified (principal); N39.0 Urinary tract infection, site not specified; D64.9 Anemia, unspecified; Z32.02 Encounter for pregnancy test, result negative; Z79.899 Other long term (current) drug therapy
CPT/HCPCS: 36415; 71045; 80053; 81001; 81025; 83735; 84484; 85025; 93005

== ENCOUNTER 2023-10-15 06:15 | Inpatient (IN) | payer MEDICAID ==
[~2023-10-15] VITALS: Ht 167.6 cm; Wt 72.3 kg
[~2023-10-15 06:15] MED LIST changes: +ACET500T58 PO; +CEPH500T PO; +NITR-87 PO; +PHEN95TA10 PO
[2023-10-15 07:09] LABS: Basophils # (auto) 0 10 ^3/uL (0-0.2); Basophils % (auto) 0.3 % (0.0-2.0); Eosinophils # (auto) 0.1 10 ^3/uL (0-0.8); Eosinophils % (auto) 1.3 % (0.0-7.0); Hematocrit 37.1 % (36.0-46.0); Hemoglobin 12.6 g/dL (12.2-16.2); Lymphocytes # (auto) 1.4 10 ^3/uL (0.4-5.4); Lymphocytes % (auto) 14.6 % (10.0-50.0); Mean Corpuscular Hemoglobin 29.7 pg (28.0-32.0); Mean Corpuscular Hgb Conc. 34.1 g/dL (32.0-36.0); Mean Corpuscular Volume 87.1 fL (80.0-100.0); Monocytes # (auto) 0.7 10 ^3/uL (0-1.3); Monocytes % (auto) 6.8 % (0.0-12.0); Neutrophils # (auto) 7.6 10 ^3/uL (1.6-8.6); Red Blood Cells 4.26 10^6/uL (4.0-5.20); White Blood Cell 9.9 10^3/uL (4.4-10.8)
[2023-10-15 07:26] LABS: Chloride 108 mmol/L (98-107); Potassium 3.6 mmol/L (3.5-5.1); Sodium 138 mmol/L (136-145)
[2023-10-15 07:27] LABS: Anion Gap 6 (5-15); Carbon Dioxide 24 mmol/L (20-30)
[2023-10-15 07:28] LABS: Calcium 9.3 mg/dL (8.7-10.4)
[2023-10-15 07:33] LABS: Glucose 93 mg/dL (74-106)
[2023-10-15] MEDS: ONDANSETRON HCL 4 MG/2 ML VIAL IV ONE (08:14)
[2023-10-15] MEDS: SODIUM CHLORIDE 0.9% 1,000 ML IV ONE (08:15)
[2023-10-15] MEDS: MORPHINE SULFATE INJ 2 MG/ml SYRG IV ONE (08:15)
[2023-10-15 08:44] LABS: BUN/Creatinine Ratio 13.8 (10.0-20.0); Blood Urea Nitrogen 13 mg/dL (9-23)
[2023-10-15 11:02] LABS: Urine Bacteria FEW /hpf (None Seen); Urine Blood Negative /uL (Negative); Urine Color Dark-Orange (Yellow); Urine Mucus FEW (None Seen); Urine Protein, UAD TRACE (Negative); Urine Specific Gravity 1.032 (1.001-1.035); Urine Urobilinogen 6 mg/dL (Negative); Urine WBC 23 /hpf (0 - 5)
[2023-10-15 11:12] LABS: Urine Clarity Hazy (Clear)
[2023-10-15] MEDS ORDERED: ONDANSETRON HCL 4 MG/2 ML VIAL IV PRN (12:45)
[2023-10-15] MEDS ORDERED: PETROLATUM PR PRN (12:45)
[2023-10-15] MEDS ORDERED: PHENYLEPHRINE PR PRN (12:45)
[2023-10-15] MEDS ORDERED: MINERAL OIL PR PRN (12:45)
[2023-10-15] MEDS: KETOROLAC TROMETH 30 MG/ML 1ML VIAL IV ONE (13:27)
[2023-10-15] MEDS: PHENAZOPYRIDINE HCL 100 MG TAB PO ONE (13:27)
[2023-10-15] MEDS: SODIUM CHLORIDE 0.9% 1,000 ML IV SCH (13:29)
[2023-10-15] MEDS: ACETAMINOPHEN 325 MG TAB PO PRN (17:03)
[2023-10-15 17:27] VITALS: BP 113/66; PULSE 106; PULSE 107; RESP 16; RESP 18; RESP 20; TEMP 101.4; O2SAT 96; O2SAT 97
[2023-10-15] MEDS: PHENAZOPYRIDINE HCL 100 MG TAB PO SCH (18:56)
[2023-10-15 20:00] VITALS: PULSE 72; RESP 18
[2023-10-15 21:00] VITALS: BP 98/53; PULSE 98; RESP 20; TEMP 98.9; O2SAT 97
[2023-10-16] VITALS (8 sets, daily range): BP systolic 110–119; BP diastolic 66–75; PULSE 72–100; RESP 16–20; TEMP 97.9–103; O2SAT 95–97
[2023-10-16 06:16] LABS: Basophils # (auto) 0 10 ^3/uL (0-0.2); Basophils % (auto) 0.2 % (0.0-2.0); Eosinophils # (auto) 0 10 ^3/uL (0-0.8); Eosinophils % (auto) 0.2 % (0.0-7.0); Hematocrit 35.9 % (36.0-46.0); Hemoglobin 12.3 g/dL (12.2-16.2); Lymphocytes # (auto) 0.9 10 ^3/uL (0.4-5.4); Lymphocytes % (auto) 7.1 % (10.0-50.0); Mean Corpuscular Hemoglobin 30.2 pg (28.0-32.0); Mean Corpuscular Hgb Conc. 34.4 g/dL (32.0-36.0); Mean Corpuscular Volume 87.8 fL (80.0-100.0); Monocytes # (auto) 0.7 10 ^3/uL (0-1.3); Monocytes % (auto) 5.9 % (0.0-12.0); Neutrophils # (auto) 10.5 10 ^3/uL (1.6-8.6); Neutrophils % (auto) 86.6 % (37.0-80.0); Red Blood Cells 4.08 10^6/uL (4.0-5.20); Red Cell Distribution Width 15.2 % (11.8-14.3); White Blood Cell 12.1 10^3/uL (4.4-10.8)
[2023-10-16 06:46] LABS: Alanine Aminotransferase < 9 U/L (7-40); Alkaline Phosphatase 73 U/L (46-116); Anion Gap 6 (5-15); Aspartate Aminotransferase 9 U/L (13-40); BUN/Creatinine Ratio 10.3 (10.0-20.0); Bilirubin, Total 1.8 mg/dL (0.2-1.0); Blood Urea Nitrogen 7 mg/dL (9-23); Carbon Dioxide 25 mmol/L (20-30); Chloride 107 mmol/L (98-107); Glucose 99 mg/dL (74-106); Potassium 3.5 mmol/L (3.5-5.1); Sodium 138 mmol/L (136-145); Total Protein 6.5 g/dL (5.7-8.2)
[2023-10-16] MEDS: FERROUS SULFATE 325mg EC TAB PO SCH (09:32)
[2023-10-16] MEDS: ASCORBIC ACID 500 MG TAB PO SCH (09:32)
[2023-10-16] MEDS ORDERED: PRENATAL VITAMIN TAB PO SCH (10:00)
[2023-10-16] MEDS: cefTRIAXone 1GM/50ML D5W 50 ML IV ONE (14:30)
[2023-10-16] MEDS: KETOROLAC TROMETH 30 MG/ML 1ML VIAL IV PRN (20:55)
[2023-10-17] VITALS (9 sets, daily range): BP systolic 107–132; BP diastolic 53–78; PULSE 80–104; RESP 15–19; TEMP 98.2–101.6; O2SAT 95–98
[2023-10-17] MEDS ORDERED: cefTRIAXone 1GM/50ML D5W 50 ML IV SCH (09:00)
[2023-10-17] MEDS: MULTIPLE VITAMINS W/ MINERALS TAB PO SCH (09:18)
[2023-10-17] MEDS: cefTRIAXone 1GM/50ML D5W 50 ML IV SCH (09:19)
[2023-10-17 09:55] LABS: Basophils # (auto) 0 10 ^3/uL (0-0.2); Basophils % (auto) 0.3 % (0.0-2.0); Eosinophils # (auto) 0 10 ^3/uL (0-0.8); Eosinophils % (auto) 0.4 % (0.0-7.0); Lymphocytes # (auto) 1.1 10 ^3/uL (0.4-5.4); Lymphocytes % (auto) 14.9 % (10.0-50.0); Mean Corpuscular Hgb Conc. 34.2 g/dL (32.0-36.0); Mean Corpuscular Volume 87.7 fL (80.0-100.0); Monocytes # (auto) 0.4 10 ^3/uL (0-1.3); Monocytes % (auto) 5.6 % (0.0-12.0); Neutrophils # (auto) 5.9 10 ^3/uL (1.6-8.6); Neutrophils % (auto) 78.8 % (37.0-80.0); Red Blood Cells 3.99 10^6/uL (4.0-5.20); Red Cell Distribution Width 14.6 % (11.8-14.3); White Blood Cell 7.5 10^3/uL (4.4-10.8)
[2023-10-17 10:20] LABS: Alkaline Phosphatase 71 U/L (46-116); Anion Gap 6 (5-15); Aspartate Aminotransferase 8 U/L (13-40); BUN/Creatinine Ratio 12.5 (10.0-20.0); Bilirubin, Total 1.6 mg/dL (0.2-1.0); Blood Urea Nitrogen 7 mg/dL (9-23); Calcium 8.6 mg/dL (8.7-10.4); Carbon Dioxide 23 mmol/L (20-30); Chloride 108 mmol/L (98-107); Glucose 128 mg/dL (74-106); Potassium 2.9 mmol/L (3.5-5.1); Sodium 137 mmol/L (136-145); Total Protein 6.5 g/dL (5.7-8.2)
[2023-10-17 10:23] LABS: Alanine Aminotransferase < 9 U/L (7-40)
[2023-10-17] MEDS ORDERED: POTASSIUM EFFERVESENT TAB 25 MEQ PO ONE (12:45)
[2023-10-17] MEDS: POTASSIUM CHL 20MEQ/100ML 100 ML IV SCH (18:01)
[2023-10-17] MEDS: POTASSIUM EFFERVESENT TAB 25 MEQ PO SCH (21:16)
[2023-10-18 01:00] VITALS: BP 123/83; PULSE 86; RESP 16; TEMP 99.1; O2SAT 94
[2023-10-18 05:00] VITALS: BP 117/72; PULSE 90; RESP 16; TEMP 99.2; O2SAT 94
[2023-10-18 06:39] LABS: Basophils # (auto) 0 10 ^3/uL (0-0.2); Basophils % (auto) 0.4 % (0.0-2.0); Eosinophils # (auto) 0.1 10 ^3/uL (0-0.8); Eosinophils % (auto) 1.1 % (0.0-7.0); Hematocrit 33.5 % (36.0-46.0); Hemoglobin 11.4 g/dL (12.2-16.2); Lymphocytes # (auto) 1.2 10 ^3/uL (0.4-5.4); Lymphocytes % (auto) 14.2 % (10.0-50.0); Mean Corpuscular Hemoglobin 29.4 pg (28.0-32.0); Mean Corpuscular Volume 86.7 fL (80.0-100.0); Monocytes # (auto) 0.6 10 ^3/uL (0-1.3); Monocytes % (auto) 7.2 % (0.0-12.0); Neutrophils # (auto) 6.7 10 ^3/uL (1.6-8.6); Neutrophils % (auto) 77.1 % (37.0-80.0); Red Blood Cells 3.86 10^6/uL (4.0-5.20); Red Cell Distribution Width 14.9 % (11.8-14.3); White Blood Cell 8.7 10^3/uL (4.4-10.8)
[2023-10-18 06:42] LABS: Alanine Aminotransferase 15 U/L (7-40); Albumin 3.9 g/dL (3.2-4.8); Alkaline Phosphatase 70 U/L (46-116); Anion Gap 6 (5-15); Aspartate Aminotransferase 15 U/L (13-40); Bilirubin, Total 0.8 mg/dL (0.2-1.0); Calcium 9.1 mg/dL (8.7-10.4); Carbon Dioxide 24 mmol/L (20-30); Chloride 107 mmol/L (98-107); Glucose 92 mg/dL (74-106); Potassium 3.9 mmol/L (3.5-5.1); Sodium 137 mmol/L (136-145); Total Protein 6.5 g/dL (5.7-8.2)
[2023-10-18 06:50] LABS: BUN/Creatinine Ratio 8.1 (10.0-20.0); Blood Urea Nitrogen < 5 mg/dL (9-23)
[2023-10-18 08:00] VITALS: RESP 16
[2023-10-18 09:00] VITALS: BP 116/67; PULSE 85; RESP 20; TEMP 99.9; O2SAT 92
[2023-10-18 13:03] VITALS: TEMP 37.7
[2023-10-18] MEDS ORDERED: CEFD300C2 PO (13:14)
== END 2023-10-18 15:43 | disposition home or self-care (01) | DRG 720 ==
LOC: ER 06:15 → OVERFLOW 12:40 → EAST 17:51
PROVIDERS: ADMIT Internal Medicine Geriatric Medicine; ATTEND Internal Medicine Geriatric Medicine
DX: A41.9 Sepsis, unspecified organism (principal); N13.6 Pyonephrosis; E87.6 Hypokalemia; K52.9 Noninfective gastroenteritis and colitis, unspecified; Z79.899 Other long term (current) drug therapy
CPT/HCPCS: 36415; 76700; 80048; 80053; 81001; 84702; 85025; 87040; 87086; 96361; 96374; 96375; G0378; J1885; J2405; J3480

== ENCOUNTER 2024-08-16 19:45 | Emergency (ER) | payer MEDICAID ==
[~2024-08-16] VITALS: Ht 165.1 cm; Wt 72.7 kg
[~2024-08-16 19:45] MED LIST changes: -ACET-1882 PO; +CEFD300C2 PO; -CEPH500T PO; -IBU600T PO; -NITR-87 PO; -PHEN95TA10 PO
[2024-08-16] MEDS ORDERED: KETOROLAC TROMETH 60MG/2ML VIAL IM ONE (20:00)
--- NOTE | 2024-08-16 20:03 | ED.PDOC ---
HPI Comments 24y F who presents to the ED for chief complaint of chest pain. Pt states she has been having chest pain for the past 3 hours. Pt states the pain is located by the center of her chest, rating the pain 6/10, pressure like in nature, non- radiating, intermittent, with noted exacerbating factor of deep inspiration and no relieving factors. Pt has no associated symptoms but otherwise denies shortness of breath, diaphoresis, palpitations, fever, cough, chills, dysuria, hematuria or hematemesis. Pt otherwise denies any past medical history. Pt denies any other symptoms at this time. Vital signs were stable at arrival. Chief Complaint: Chest Pain Time Seen by MD: 20:01 Primary Care Provider: NONE Reviewed Notes: Nurses Notes, Medications, Allergies Allergies: Coded Allergies: NO KNOWN ALLERGIES (Unverified , 08/27/20) Home Meds Active Scripts Cefdinir (Cefdinir) 300 Mg Cap, 1 CAP PO BID for 7 Days, #14 CAP Prov:CALEB SARMIENTO RESIDENT 10/18/23 Acetaminophen (Acetaminophen) 500 Mg Tab, 500 MG PO QIDPRN PRN for 10 Days, #40 TAB Prov:BERTO PIERRE DO 07/01/23 Ferrous Sulfate (FERROUS SULFATE) 325 Mg Tb, 1 TAB PO DAILY, #30 TAB 3 Refills Prov:RONY CORRALES PAC 11/13/22 Phenylephrine-Mineral Oil-Patrice (Hemorrhoidal 0.25-14-74.9 %) 1 Oin Oin, 1 OIN WY PRN for 20 Days, OIN Prov:KISHORE HAYES CN 06/03/22 Ascorbic Acid (Vitamin C) 500 Mg Tab, 500 MG PO DAILY for 60 Days, #60 TAB Prov:KISHORE HAYES CNM 06/02/22 Ferrous Sulfate (FERROUS SULFATE) 325 Mg Tb, 325 MG PO DAILY for 60 Days, #60 TAB Prov:KISHORE HAYES CN 06/02/22 Witch Tasha-Glycerin (Tucks) 1 Pad Pd, 1 PAD TOP PRN PRN for 30 Days, #1 PAD Prov:KISHORE HAYES CN 06/02/22 Docusate Sodium (Docusate Sodium) 100 Mg Cap, 200 MG PO HS for 10 Days, #10 CAP Prov:KISHORE HAYES CNM 06/02/22 Reported Medications Vit W/ Ferrous Fumara ( Vitamins Plus Lo 27-1 mg) 1 Tab Tab, 1 TAB PO DAILY for SUPPLEMENT, TAB 08/27/20 Information Source: Patient Mode of Arrival: Ambulatory Severity: Moderate Timing: Hours Duration: Since onset Prehospital treatment: None Location: Substernal Quality: Sharp, Pressure Onset: At Rest Cardiac Risk Factors: None PE Risk Factors: None History of: None Past Medical History PAST MEDICAL HISTORY: Denies Surgical History: Denies all surgeries 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 Family History Family History: Reviewed,noncontributory to illness Social History Smoker: Non-Smoker Alcohol: Denies ETOH Use Drugs: Denies Drug Use Lives In: Home Constitutional: denies: chills, diaphoresis, fatigue, fever, malaise, sweats, weakness, others EENTM: denies: blurred vision, double vision, ear bleeding, ear discharge, ear drainage, ear pain, ear ringing, eye pain, eye redness, hearing loss, mouth pain, mouth swelling, nasal discharge, nose bleeding, nose congestion, nose pain, photophobia, tearing, throat pain, throat swelling, voice changes, others Respiratory: denies: cough, hemoptysis, orthopnea, SOB at rest, shortness of breath, SOB with excertion, stridor, wheezing, others Cardiovascular: reports: chest pain; denies: dizzy spells, diaphoresis, Dyspnea on exertion, edema, irregular heart beat, left arm pain, lightheadedness, palpitations, PND, syncope, others Gastrointestinal: denies: abdomen distended, abdominal pain, blood streaked bowels, constipated, diarrhea, dysphagia, difficulty swallowing, hematemesis, melena, nausea, poor appetite, poor fluid intake, rectal bleeding, rectal pain, vomiting, others Genitourinary: denies: abnormal vagina bleeding, burning, dyspareunia, dysuria, flank pain, frequency, hematuria, incontinence, pain, , vagina discharge, urgency, others Neurological: denies: dizziness, fainting, headache, left sided numbness, left sided weakness, numbness, paresthesia, pre-existing deficit, right sided numbness, right sided weakness, seizure, speech problems, tingling, tremors, weakness, others Musculoskeletal: denies: back pain, gout, joint pain, joint swelling, muscle pain, muscle stiffness, neck pain, others Integumetry: denies: bruises, change in color, change in hair/nails, dryness, laceration, lesions, lumps, rash, wounds, others Allergic/Immunocompromised: denies: Difficulty Healing, Frequent Infections, Hives, Itching, others Hematologic/Lymphatic: denies: anemia, blood clots, easy bleeding, easy bruising, swollen glands, others Endocrine: denies: excessive hunger, excessive sweating, excessive thirst, excessive urination, flushing, intolerance to cold, intolerance to heat, unexplained weight gain, unexplained weight loss, others Psychiatric: denies: anxiety, bipolar disorder, depression, hopeless, panic disorder, schizophrenia, sleepless, suicidal, others All Other Systems: Reviewed and Negative Physical Exam General Appearance: Moderate Distress ([id number] distress due to chest pain concerns.), Normal HEENT: Normal ENT Inspection, Pharynx Normal, TMs Normal Neck: Full Range of Motion, Non-Tender, Normal, Normal Inspection Respiratory: Lungs Clear, No Accessory Muscle Use, No Respiratory Distress, Normal Breath Sounds, Other ( Patient did have some substernal chest pain on palpation around ribs seven on the left side. No edema or ecchymosis.) Cardiovascular: No Edema, No JVD, No Murmur, No Gallop, Normal Peripheral P ulses, Regular Rate/Rhythm Breast Exam: Deferred Gastrointestinal: No Organomegaly, Non Tender, No Pulsatile Mass, Normal Bowel Sounds, Soft Genitalia: Deferred Pelvic: Deferred Rectal: Deferred Extremities: No calf tenderness, Normal capillary refill, Normal inspection, Normal range of motion, Non-tender, No pedal edema Neurologic: Alert, No Motor Deficits, Normal Affect, Normal Mood, No Sensory Deficits Cerebellar Function: Normal Reflexes: Normal Skin: Dry, Normal Color, Warm Lymphatic: No Adenopathy Was a procedure done? Was a procedure done?: No CP Differential Dx Differential Diagnosis: Angina, Anxiety / Panic Attack Differential Diagnosis: Angina, Chest Wall Pain, Costochondritis, Gastritis, Pneumonia X-Ray, Labs, Meds, VS Vital Signs Date Time Temp Pulse Resp B/P (MAP) Pulse Ox O2 Delivery O2 Flow Rate FiO2 08/16/24 21:38 98.5 74 16 116/67 (83) 98 98.5 08/16/24 20:00 98.4 86 18 121/75 (90) 97 98.4 08/16/24 19:52 86 Lab Test 08/16/24 22:08 08/16/24 20:42 08/16/24 19:56 Range/Units Urine Color Colorless Yellow Urine Clarity Ex.turbid Clear Urine pH 7.0 5.0-9.0 Urine Specific [place] 1.025 1.001-1.035 Urine Protein Trace H Negative Urine Ketones Negative Negative Urine Blood Negative Negative /uL Urine Nitrite Negative Negative Urine Bilirubin Negative Negative Urine Urobilinogen Normal Negative mg/dL Urine Leukocyte Esterase 3+ Negative /uL Urine RBC <1 0 - 4 /hpf Urine Microscopic WBC 35 H 0-5 /HPF Urine Squamous Epithelial Cells Many <5 /hpf Urine Amorphous Crystals Few None Seen /hpf Urine Bacteria Few H None Seen /hpf Urine Mucus Few None Seen Urine Glucose Normal Normal mg/dL Urine Test Negative Negative Troponin I High Sensitivity < 3 L < 3 L </=34 ng/L White Blood Count 11.2 H 4.4-10.8 10^3/uL Red Blood Count 4.41 4.0-5.20 10^6/uL Hemoglobin 13.1 12.2-16.2 g/dL Hematocrit 38.8 36.0-46.0 % Mean Corpuscular Volume 88.1 80.0-100.0 fL Mean Corpuscular Hemoglobin 29.8 28.0-32.0 pg Mean Corpuscular Hemoglobin Concent 33.8 32.0-36.0 g/dL Red Cell Distribution Width 13.6 11.8-14.3 % Platelet Count 247 140-450 10^3/uL Mean Platelet Volume 8.3 6.9-10.8 fL Neutrophils (%) (Auto) 72.5 37.0-80.0 % Lymphocytes (%) (Auto) 20.6 10.0-50.0 % Monocytes (%) (Auto) 5.7 0.0-12.0 % Eosinophils (%) (Auto) 0.9 0.0-7.0 % Basophils (%) (Auto) 0.3 0.0-2.0 % Neutrophils # (Auto) 8.2 1.6-8.6 10 ^3/uL Lymphocytes # (Auto) 2.3 0.4-5.4 10 ^3/uL Monocytes # (Auto) 0.6 0-1.3 10 ^3/uL Eosinophils # (Auto) 0.1 0-0.8 10 ^3/uL Basophils # (Auto) 0 0-0.2 10 ^3/uL Nucleated Red Blood Cells 0.1 % Sodium Level 142 136-145 mmol/L Potassium Level 4.4 3.5-5.1 mmol/L Chloride Level 106 98-107 mmol/L Carbon Dioxide Level 27 20-31 mmol/L Anion Gap 9 5-15 Blood Urea Nitrogen 14 9-23 mg/dL Creatinine 0.74 0.550-1.02 mg/dL Glomerular Filtration Rate Calc 115 >90 mL/min BUN/Creatinine Ratio 18.9 10.0-20.0 Serum Glucose 94 74-106 mg/dL Calcium Level 9.7 8.7-10.4 mg/dL B-Type Natriuretic Peptide 8.80 0-100 pg/mL [place] [id number] Ph: [phone] DIAGNOSTIC IMAGING Diagnostic Imaging Report : [id number] Signed PATIENT: BROOKLYNN FREDERICKCT: [id number] UNIT: [id number] : 2000 LOC: ER ROOM / BED: / AGE / SEX: 24 / F ADM STATUS: REG ER SERVICE 55 ORDERING PHYSICIAN: RONY CORRALES PAC PROCEDURE(s): CXRP - CHEST PORTABLE REASON: Chest pain ORDER NUMBER(s): [id number], ACCESSION NUMBER(s): [id number] INDICATION: Chest pain TECHNIQUE: Frontal view of the chest. COMPARISON: XY CHEST PORTABLE on DOS: 11/13/22 FINDINGS: Findings:. The heart and mediastinal contours are grossly unremarkable. There is no evidence of pleural disease. The lungs are clear. The bony structures of the chest are intact without fracture. IMPRESSION: 1. No evidence of acute disease. ATED BY: GINGER MENDOZA MD DICTATED DATE/TIME: 08/16/242043 SIGNED BY: GINGER MENDOZA MD SIGNED DATE/TIME: 08/16/242043 CC: X-Ray, Labs, Meds, VS Comment All studies performed the ED were evaluated by me personally. Chest x-ray was unremarkable for any consolidation or signs of intrapulmonary concerns. Patient's EKG revealed a sinus rhythm with a rate of 86. Low voltage in the precordial leads. WY interval 164 and QT interval of 350. unremarkable EKG. Serum laboratories were unremarkable for any systemic process, but urinalysis confirmed a large urinary tract infection. Patient will be given a prescription for oral antibiotics and has been advised to utilize as directed until completion. Additionally, patient appears to be suffering from a costochondritis event. Patient will be sent home with anti-inflammatory meds. Time of 1ST Reevaluation: 22:52 Reevaluation 1ST: Improved Consultation: PCP Patient Education/Counseling: Diagnosis, Treatment Family Education/Counseling: Diagnosis, Treatment, No Family Present Departure 1 Departure Time of Disposition: 22:52 Impression: Primary Impression: Costochondritis Additional Impression: UTI (urinary tract infection) Disposition: HOME / SELF CARE / HOMELESS Condition: Stable Additional Instructions: Advised patient utilize pain medication as needed and antibiotics as directed until completion. Advised good hydration throughout. e-Prescriptions Nitrofurantoin Monohydrate Mac (Macrobid) 100 Mg Cap 100 MG PO BID for 7 Days, #14 CAP Prov: RONY CORRALES PAC 08/16/24 Ibuprofen Micronized (Ibuprofen) 800 Mg Tab 800 MG PO Q8HP PRN, #20 TAB Prov: RONY CORRALES PAC 08/16/24 Discharged With: Self, Friend Critical Care Note Critical Care Time?: No Stability Stability form required: No Heart Score Heart Score: Heart Score Response (Comments) Value History Slightly Suspicious 0 EKG Normal 0 Age <45 0 Risk Factors No known risk factors 0 Troponin Normal limit 0 Total 0 I personally scribed for RONY CORRALES PAC ([email or web address]) on 08/16/24 at 20:03. Electronically submitted by Joceline Frank ([email or web address]). I personally scribed for RONY CORRALES PAC ([email or web address]) on 08/16/24 at 21:25. Electronically submitted by Joceline Frank ([email or web address]). RONY CORRALES PAC August 16, 2024 20:03
[2024-08-16 20:09] LABS: Basophils # (auto) 0 10 ^3/uL (0-0.2); Basophils % (auto) 0.3 % (0.0-2.0); Eosinophils # (auto) 0.1 10 ^3/uL (0-0.8); Eosinophils % (auto) 0.9 % (0.0-7.0); Hematocrit 38.8 % (36.0-46.0); Hemoglobin 13.1 g/dL (12.2-16.2); Lymphocytes # (auto) 2.3 10 ^3/uL (0.4-5.4); Lymphocytes % (auto) 20.6 % (10.0-50.0); Mean Corpuscular Hemoglobin 29.8 pg (28.0-32.0); Mean Corpuscular Hgb Conc. 33.8 g/dL (32.0-36.0); Mean Corpuscular Volume 88.1 fL (80.0-100.0); Monocytes # (auto) 0.6 10 ^3/uL (0-1.3); Monocytes % (auto) 5.7 % (0.0-12.0); Neutrophils # (auto) 8.2 10 ^3/uL (1.6-8.6); Neutrophils % (auto) 72.5 % (37.0-80.0); Nucleated Red Blood Cells % 0.1 %; Platelet Count (auto) 247 10^3/uL (140-450); Red Blood Cells 4.41 10^6/uL (4.0-5.20); Red Cell Distribution Width 13.6 % (11.8-14.3); White Blood Cell 11.2 10^3/uL (4.4-10.8)
[2024-08-16 20:18] LABS: Chloride 106 mmol/L (98-107); Potassium 4.4 mmol/L (3.5-5.1); Sodium 142 mmol/L (136-145)
[2024-08-16 20:19] LABS: Anion Gap 9 (5-15); Calcium 9.7 mg/dL (8.7-10.4); Carbon Dioxide 27 mmol/L (20-31)
[2024-08-16 20:24] LABS: BUN/Creatinine Ratio 18.9 (10.0-20.0); Blood Urea Nitrogen 14 mg/dL (9-23); Glucose 94 mg/dL (74-106)
--- NOTE | 2024-08-16 20:46 | DVH ---
INDICATION: Chest pain TECHNIQUE: Frontal view of the chest. COMPARISON: XY CHEST PORTABLE on DOS: 11/13/22 FINDINGS: Findings:. The heart and mediastinal contours are grossly unremarkable. There is no evidence of pleu ral disease. The lungs are clear. The bony structures of the chest are intact without fracture. IMPRESSION: 1. No evidence of acute disease.
[2024-08-16 21:38] VITALS: BP 116/67; PULSE 74; RESP 16; TEMP 98.5; O2SAT 98
[2024-08-16 22:47] LABS: Urine Amorphous Crystal FEW /hpf (None Seen); Urine Bacteria FEW /hpf (None Seen); Urine Blood Negative /uL (Negative); Urine Clarity Ex.Turbid (Clear); Urine Color Colorless (Yellow); Urine Mucus FEW (None Seen); Urine Protein, UAD TRACE (Negative); Urine Specific Gravity 1.025 (1.001-1.035); Urine Squamous Epithelial Cell MANY /hpf (<5); Urine Urobilinogen Normal (Negative); Urine WBC 35 /HPF (0-5)
[2024-08-16] MEDS ORDERED: IBUP-1455 PO (22:54)
[2024-08-16] MEDS ORDERED: NITR-87 PO (22:54)
--- NOTE | 2024-08-17 05:37 | ECG ---
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
== END 2024-08-16 22:43 | disposition left against medical advice (07) ==
LOC: ER 19:45
DX: M94.0 Chondrocostal junction syndrome [Tietze] (principal); N39.0 Urinary tract infection, site not specified; Z79.899 Other long term (current) drug therapy
CPT/HCPCS: 36415; 71045; 80048; 81001; 81025; 83880; 84484; 85025; 93005

== ENCOUNTER 2024-10-25 13:52 | Emergency (ER) | payer MEDICAID ==
[~2024-10-25] VITALS: Ht 167.6 cm; Wt 78.0 kg
[~2024-10-25 13:52] MED LIST changes: +IBUP-1455 PO; +NITR-87 PO
[2024-10-25] MEDS ORDERED: TOB03OS OP (14:14)
--- NOTE | 2024-10-25 14:24 | ED.PDOC ---
Eye-HPI HPI Comments A 24 Y/O F PRESENTS WITH C/C LEFT EYE PAIN AND REDNESS 2X WEEK. HISTORY OF SYMPTOMS. UNPROVOKED, ATRAUMATIC, AND GRADUAL ONSET. NO RELIEF OR IMPROVEMENT WITH [id number] EYE DROPS AND CREAM. NO SIGNIFICANT HISTORY. DENIES ANY FACIAL DROOP, BLURRY VISION, VISUAL CHANGE, FEVER, CHILLS, HEADACHE, DIZZINESS, OR FURTHER ASSOCIATED SYMPTOMS. NO OTHER SYMPTOMS REPORTED AT THIS TIME OF CARE. Chief Complaint: Eye Problem Time Seen by MD: 14:15 Primary Care Provider: NONE Reviewed Notes: Nurses Notes, Medications, Allergies Allergies: Coded Allergies: NO KNOWN ALLERGIES (Unverified , 08/27/20) Home Meds Active Scripts Tobramycin Sulfate (Tobrex) [address], 2 DROP OP QID, #5 ML Prov:KYMBERLY PALACIOS PA 10/25/24 Nitrofurantoin Monohydrate Mac (Macrobid) 100 Mg Cap, 100 MG PO BID for 7 Days, #14 CAP Prov:RONY CORRALES PAC 08/16/24 Ibuprofen Micronized (Ibuprofen) 800 Mg Tab, 800 MG PO Q8HP PRN, #20 TAB Prov:RONY CORRALES PAC 08/16/24 Cefdinir (Cefdinir) 300 Mg Cap, 1 CAP PO BID for 7 Days, #14 CAP Prov:CALEB SARMIENTO RESIDENT 10/18/23 Acetaminophen (Acetaminophen) 500 Mg Tab, 500 MG PO QIDPRN PRN for 10 Days, #40 TAB Prov:JOSE MARTIN PIERRE-ROSALEE Sharp DO 07/01/23 Ferrous Sulfate (FERROUS SULFATE) 325 Mg Tb, 1 TAB PO DAILY, #30 TAB 3 Refills Prov:RONY CORRALES PAC 11/13/22 Phenylephrine-Mineral Oil-Patrice (Hemorrhoidal 0.25-14-74.9 %) 1 Oin Oin, 1 OIN WY PRN for 20 Days, OIN Prov:KISHORE HAYES 06/03/22 Ascorbic Acid (Vitamin C) 500 Mg Tab, 500 MG PO DAILY for 60 Days, #60 TAB Prov:KISHORE HAYES 06/02/22 Ferrous Sulfate (FERROUS SULFATE) 325 Mg Tb, 325 MG PO DAILY for 60 Days, #60 TAB Prov:KISHORE HAYES 06/02/22 Witch Tasha-Glycerin (Tucks) 1 Pad Pd, 1 PAD TOP PRN PRN for 30 Days, #1 PAD Prov:KISHORE HAYES [facility] 06/02/22 Docusate Sodium (Docusate Sodium) 100 Mg Cap, 200 MG PO HS for 10 Days, #10 CAP Prov:KISHOER HAYES [facility] 06/02/22 Reported Medications Vit W/ Ferrous Fumara ( Vitamins Plus Lo 27-1 mg) 1 Tab Tab, 1 TAB PO DAILY for SUPPLEMENT, TAB 08/27/20 Information Source: Patient Mode of Arrival: Ambulatory Timing: Days Duration: Since onset Prehospital treatment: None Quality: Pain, Red, Green Eye Location: Left Lids: Normal Conjunctiva: Injection, Subconjunctival hemorrhag, Green Cornea: Normal Pupils: Normal EOM: Normal Fundus: Normal Slit lamp exam: Normal Anterior chamber: Normal Mouth: Normal ENT Ear Exam: Normal Nose: Normal Sinuses: Normal Oropharynx: Normal Onset: Spontaneous Throat Exposed to: None History of: None Last Tetanus: UTD Modifying factors: Cold Associated signs and symptoms: Discharge Past Medical History PAST MEDICAL HISTORY: Denies Surgical History: Denies all surgeries 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 Family History Family History: Reviewed,noncontributory to illness Social History Smoker: Non-Smoker Alcohol: Denies ETOH Use Drugs: Denies Drug Use Lives In: Home Constitutional: denies: chills, diaphoresis, fatigue, fever, malaise, sweats, weakness, others EENTM: reports: blurred vision (LEFT EYE ), eye pain (LEFT); denies: double vision, ear bleeding, ear discharge, ear drainage, ear pain, ear ringing, eye redness, hearing loss, mouth pain, mouth swelling, nasal discharge, nose bl eeding, nose congestion, nose pain, photophobia, tearing, throat pain, throat swelling, voice changes, others Respiratory: denies: cough, hemoptysis, orthopnea, SOB at rest, shortness of breath, SOB with excertion, stridor, wheezing, others Cardiovascular: denies: chest pain, dizzy spells, diaphoresis, Dyspnea on exertion, edema, irregular heart beat, left arm pain, lightheadedness, palpitations, PND, syncope, others Gastrointestinal: denies: abdomen distended, abdominal pain, blood streaked bowels, constipated, diarrhea, dysphagia, difficulty swallowing, hematemesis, melena, nausea, poor appetite, poor fluid intake, rectal bleeding, rectal pain, vomiting, others Genitourinary: denies: abnormal vagina bleeding, burning, dyspareunia, dysuria, flank pain, frequency, hematuria, incontinence, pain, , vagina discharge, urgency, others Neurological: denies: dizziness, fainting, headache, left sided numbness, left sided weakness, numbness, paresthesia, pre-existing deficit, right sided numbness, right sided weakness, seizure, speech problems, tingling, tremors, weakness, others Musculoskeletal: denies: back pain, gout, joint pain, joint swelling, muscle pain, muscle stiffness, neck pain, others Integumetry: denies: bruises, change in color, change in hair/nails, dryness, laceration, lesions, lumps, rash, wounds, others Allergic/Immunocompromised: denies: Difficulty Healing, Frequent Infections, Hives, Itching, others Hematologic/Lymphatic: denies: anemia, blood clots, easy bleeding, easy bruising, swollen glands, others Endocrine: denies: excessive hunger, excessive sweating, excessive thirst, excessive urination, flushing, intolerance to cold, intolerance to heat, unexp lained weight gain, unexplained weight loss, others Psychiatric: denies: anxiety, bipolar disorder, depression, hopeless, panic disorder, schizophrenia, sleepless, suicidal, others All Other Systems: Reviewed and Negative Physical Exam General Appearance: No Apparent Distress, Normal HEENT: Normal ENT Inspection, PERRL/EOMI, Pharynx Normal, TMs Normal, Other (LEFT SUBCONJUNCTIVA HEMORRHAGE WITH GREEN DISCHARGE. ) Neck: Full Range of Motion, Non-Tender, Normal, Normal Inspection Respiratory: Chest Non-Tender, Lungs Clear, No Accessory Muscle Use, No Respiratory Distress, Normal Breath Sounds Cardiovascular: No Edema, No JVD, No Murmur, No Gallop, Normal Peripheral Pulses, Regular Rate/Rhythm Breast Exam: Deferred Gastrointestinal: No Organomegaly, Non Tender, No Pulsatile Mass, Normal Bowel Sounds, Soft Genitalia: Deferred Pelvic: Deferred Rectal: Deferred Extremities: No calf tenderness, Normal capillary refill, Normal inspection, Normal range of motion, Non-tender, No pedal edema Musculoskeletal : Apperance: Normal Neurologic: Alert, consultant rn II-XII nml as Tested, No Motor Deficits, Normal Affect, Normal Mood, No Sensory Deficits Cerebellar Function: Normal Reflexes: Normal Skin: Dry, Normal Color, Warm Peripheral Pulses: 2+ carotid (R), 2+ carotid (L) Lymphatic: No Adenopathy Was a procedure done? Was a procedure done?: No EENT DIFF Eye: Conjunctivitis, Allergic, Bacterial, Viral, Corneal Abrasion Ear: Pharyngitis, N/A Nose: Other Mouth: N/A Sore Throat: N/A X-Ray, Labs, Meds, VS Vital Signs Date Time Temp Pulse Resp B/P (MAP) Pulse Ox O2 Delivery O2 Flow Rate FiO2 10/25/24 14:27 88 18 95 Room Air 10/25/24 14:27 98.3 88 18 106/70 (82) 95 98.3 10/25/24 14:17 98.1 95 20 128/76 (93) 98 98.1 X-Ray, Labs, Meds, VS Comment PRESCRIBED Tobrex Time of 1ST Reevaluation: 14:40 Reevaluation 1ST: Improved Patient Education/Counseling: Diagnosis, Treatment, Need For Follow Up Family Education/Counseling: Diagnosis, Treatment, No Family Present Medical Screening: No EMC Exist At This Time SEPSIS Sepsis Screen Vital Signs Date Time Temp Pulse Resp B/P (MAP) Pulse Ox O2 Delivery O2 Flow Rate FiO2 10/25/24 14:27 88 18 95 Room Air 10/25/24 14:27 98.3 88 18 106/70 (82) 95 98.3 10/25/24 14:17 98.1 95 20 128/76 (93) 98 98.1 Departure 1 Departure Time of Disposition: 14:50 Impression: Primary Impression: Acute conjunctivitis of left eye Qualified Codes: H10.32 - Unspecified acute conjunctivitis, left eye Disposition: 01 HOME / SELF CARE / HOMELESS Condition: Stable Additional Instructions: F/U WITH PCP/CHIEF CLINICAL DIETITIAN IN 24-48 HOURS e-Prescriptions Tobramycin Sulfate (Tobrex) [address] 2 DROP OP QID, #5 ML Prov: KYMBERLY PALACIOS 10/25/24 Discharged With: Self Critical Care Note Critical Care Time?: No Stability Stability form required: No Heart Score Heart Score: Heart Score Response (Comments) Value History N/A 0 EKG N/A 0 Age N/A 0 Risk Factors N/A 0 Troponin N/A 0 Total 0 I personally scribed for KYMBERLY PALACIOS ([email or web address]) on 10/25/24 at 14:24. Electronically submitted by Caleb Wilcox ([email or web address]). I personally scribed for KYMBERLY PALACIOS ([email or web address]) on 10/25/24 at 14:25. Electronically submitted by Caleb Wilcox ([email or web address]). KYMBERLY PALACIOS Oct 25, 2024 14:24
[2024-10-25 14:27] VITALS: BP 106/70; PULSE 88; RESP 18; TEMP 98.3; O2SAT 95
== END 2024-10-25 14:28 | disposition home or self-care (01) ==
LOC: ER 13:52
DX: H10.32 Unspecified acute conjunctivitis, left eye (principal)

== ENCOUNTER 2024-12-24 14:30 | Emergency (ER) | payer MEDICAID ==
[~2024-12-24] VITALS: Ht 165.1 cm; Wt 77.7 kg
[~2024-12-24 14:30] MED LIST changes: +TOB03OS OP
[2024-12-24 14:35] VITALS: BP 129/70; PULSE 97; RESP 16; TEMP 98.1; O2SAT 97
--- NOTE | 2024-12-24 15:27 | ED.PDOC ---
History of Present Illness HPI Comments 24-year-old female presents to the ER with the chief complaint of abnormal vaginal bleeding. Patient reports on being off of her IUD control for 1 month after being on it for two years. Patient states on currently being on her 3rd day of her menstruation cycle for which has been heavy and has been bleeding through the pads. The patient has been having to wear diapers due from the bleeding. Patient notes on feeling very lightheaded associated with dizziness and weakness. Denies chills, fever, N/V/D, SOB, CP. No other associated symptoms, modifiers, recent injuries or sick contacts present at this time. Chief Complaint: Vaginal Bleed Time Seen by MD: 15:20 Primary Care Provider: NONE Reviewed Notes: Nurses Notes, Medications, Allergies Allergies: Coded Allergies: NO KNOWN ALLERGIES (Unverified , 08/27/20) Home Meds Active Scripts Tobramycin Sulfate (Tobrex) [address], 2 DROP OP QID, #5 ML Prov:KYMBERLY PALACIOS 10/25/24 Nitrofurantoin Monohydrate Mac (Macrobid) 100 Mg Cap, 100 MG PO BID for 7 Days, #14 CAP Prov:RONY CORRALES PAC 08/16/24 Ibuprofen Micronized (Ibuprofen) 800 Mg Tab, 800 MG PO Q8HP PRN, #20 TAB Prov:RONY CORRALES PAC 08/16/24 Cefdinir (Cefdinir) 300 Mg Cap, 1 CAP PO BID for 7 Days, #14 CAP Prov:CALEB SARMIENTO RESIDENT 10/18/23 Acetaminophen (Acetaminophen) 500 Mg Tab, 500 MG PO QIDPRN PRN for 10 Days, #40 TAB Prov:BERTO PIERRE DO 07/01/23 Ferrous Sulfate (FERROUS SULFATE) 325 Mg Tb, 1 TAB PO DAILY, #30 TAB 3 Refills Prov:RONY CORRALES PAC 11/13/22 Phenylephrine-Mineral Oil-Patrice (Hemorrhoidal 0.25-14-74.9 %) 1 Oin Oin, 1 OIN [place] PRN for 20 Days, OIN Prov:KISHORE HAYES [facility] 06/03/22 Ascorbic Acid (Vitamin C) 500 Mg Tab, 500 MG PO DAILY for 60 Days, #60 TAB Prov:KISHORE HAYESM 06/02/22 Ferrous Sulfate (FERROUS SULFATE) 325 Mg Tb, 325 MG PO DAILY for 60 Days, #60 TAB Prov:KISHORE HAYES 06/02/22 Witch Tasha-Glycerin (Tucks) 1 Pad Pd, 1 PAD TOP PRN PRN for 30 Days, #1 PAD Prov:KISHORE HAYES 06/02/22 Docusate Sodium (Docusate Sodium) 100 Mg Cap, 200 MG PO HS for 10 Days, #10 CAP Prov:KISHORE HAYES 06/02/22 Reported Medications Vit W/ Ferrous Fumara ( Vitamins Plus Lo 27-1 mg) 1 Tab Tab, 1 TAB PO DAILY for SUPPLEMENT, TAB 08/27/20 Information Source: Patient Mode of Arrival: Ambulatory Severity: Moderate Timing: Days Duration: Since onset, Days Prehospital treatment: None Past Medical History PAST MEDICAL HISTORY: Denies Surgical History: Denies all surgeries DOCUMENTATION NURSE History: No Pertinent DOCUMENTATION NURSE History Family History Family History: Reviewed,noncontributory to illness, Unknown Social History Smoker: Non-Smoker Alcohol: Denies ETOH Use Drugs: Denies Drug Use Lives In: Home Constitutional: denies: chills, diaphoresis, fatigue, fever, malaise, sweats, weakness, others EENTM: denies: blurred vision, double vision, ear bleeding, ear discharge, ear drainage, ear pain, ear ringing, eye pain, eye redness, hearing loss, mouth pain, mouth swelling, nasal discharge, nose bleeding, nose congestion, nose pain, photophobia, tearing, throat pain, throat swelling, voice changes, others Respiratory: denies: cough, hemoptysis, orthopnea, SOB at rest, shortness of breath, SOB with excertion, stridor, wheezing, others Cardiovascular: denies: chest pain, dizzy spells, diaphoresis, Dyspnea on exertion, edema, irregular heart beat, left arm pain, lightheadedness, palpitations, PND, syncope, others Gastrointestinal: denies: abdomen distended, abdominal pain, blood streaked bowels, constipated, diarrhea, dysphagia, difficulty swallowing, hematemesis, melena, nausea, poor appetite, poor fluid intake, rectal bleeding, rectal pain, vomiting, others Genitourinary: reports: abnormal vagina bleeding; denies: burning, dyspareunia, dysuria, flank pain, frequency, hematuria, incontinence, pain, , vagina discharge, urgency, others Neurological: denies: dizziness, fainting, headache, left sided numbness, left sided weakness, numbness, paresthesia, pre-existing deficit, right sided numbness, right sided weakness, seizure, speech problems, tingling, tremors, weakness, others Musculoskeletal: denies: back pain, gout, joint pain, joint swelling, muscle pain, muscle stiffness, neck pain, others Integumetry: denies: bruises, change in color, change in hair/nails, dryness, laceration, lesions, lumps, rash, wounds, others Allergic/Immunocompromised: denies: Difficulty Healing, Frequent Infections, Hives, Itching, others Hematologic/Lymphatic: denies: anemia, blood clots, easy bleeding, easy bruising, swollen glands, others Endocrine: denies: excessive hunger, excessive sweating, excessive thirst, excessive urination, flushing, intolerance to cold, intolerance to heat, unexplained weight gain, unexplained weight loss, others Psychiatric: denies: anxiety, bipolar disorder, depression, hopeless, panic disorder, schizophrenia, sleepless, suicidal, others All Other Systems: Reviewed and Negative Physical Exam General Appearance: No Apparent Distress, Normal HEENT: Normal ENT Inspection, Pharynx Normal, TMs Normal Neck: Full Range of Motion, Non-Tender, Normal, Normal Inspection Respiratory: Chest Non-Tender, Lungs Clear, No Accessory Muscle Use, No Respiratory Distress, Normal Breath Sounds Cardiovascular: No Edema, No JVD, No Murmur, No Gallop, Normal Peripheral Pulses, Regular Rate/Rhythm Breast Exam: Deferred Gastrointestinal: No Organomegaly, Non Tender, No Pulsatile Mass, Normal Bowel Sounds, Soft Genitalia: Deferred Pelvic: Deferred Rectal: Deferred Extremities: No calf tenderness, Normal capillary refill, Normal inspection, Normal range of motion, Non-tender, No pedal edema Musculoskeletal : Apperance: Normal Neurologic: Alert, wire annealer II-XII nml as Tested, No Motor Deficits, Normal Affect, Normal Mood, No Sensory Deficits Cerebellar Function: Normal Reflexes: Normal Skin: Dry, Normal Color, Warm Lymphatic: No Adenopathy Was a procedure done? Was a procedure done?: No Differential Dx Considerations may include: Abnormal uterine bleeding X-Ray, Labs, Meds, VS Vital Signs Date Time Temp Pulse Resp B/P (MAP) Pulse Ox O2 Delivery O2 Flow Rate FiO2 12/24/24 14:35 98.1 97 16 129/70 97 98.1 Lab Test 12/24/24 15:51 Range/Units White Blood Count 9.0 4.4-10.8 10^3/uL Red Blood Count 4.45 4.0-5.20 10^6/uL Hemoglobin 13.1 12.2-16.2 g/dL Hematocrit 38.4 36.0-46.0 % Mean Corpuscular Volume 86.3 80.0-100.0 fL Mean Corpuscular Hemoglobin 29.5 28.0-32.0 pg Mean Corpuscular Hemoglobin Concent 34.2 32.0-36.0 g/dL Red Cell Distribution Width 13.3 11.8-14.3 % Platelet Count 311 140-450 10^3/uL Mean Platelet Volume 8.2 6.9-10.8 fL Neutrophils (%) (Auto) 69.0 37.0-80.0 % Lymphocytes (%) (Auto) 22.8 10.0-50.0 % Monocytes (%) (Auto) 6.6 0.0-12.0 % Eosinophils (%) (Auto) 1.4 0.0-7.0 % Basophils (%) (Auto) 0.2 0.0-2.0 % Neutrophils # (Auto) 6.2 1.6-8.6 10 ^3/uL Lymphocytes # (Auto) 2.1 0.4-5.4 10 ^3/uL Monocytes # (Auto) 0.6 0-1.3 10 ^3/uL Eosinophils # (Auto) 0.1 0-0.8 10 ^3/uL Basophils # (Auto) 0 0-0.2 10 ^3/uL Nucleated Red Blood Cells 0.1 % Sodium Level 140 136-145 mmol/L Potassium Level 3.4 L 3.5-5.1 mmol/L Chloride Level 105 98-107 mmol/L Carbon Dioxide Level 24 20-31 mmol/L Anion Gap 11 5-15 Blood Urea Nitrogen 8 L 9-23 mg/dL Creatinine 0.71 0.550-1.02 mg/dL Glomerular Filtration Rate Calc 121 >90 mL/min BUN/Creatinine Ratio 11.3 10.0-20.0 Serum Glucose 120 H 74-106 mg/dL Calcium Level 9.0 8.7-10.4 mg/dL Time of 1ST Reevaluation: 15:50 Reevaluation 1ST: Unchanged Patient Education/Counseling: Diagnosis, Treatment, Prognosis Family Education/Counseling: No Family Present SEPSIS Sepsis Screen Date sepsis recognized/suspect: Dec 24, 2024 Time Sepsis recognized/suspect: 1435 Recent Procedure: No On Antibiotic Therapy: No Respiratory Rate >20: No Heart Rate >90: No Temp<36 C (96.8 F) or >38.3 C: No SBP <90 or MAP <65 mmHG: No New Acute Mental Status Change: No Is the patient on CPAP, BIPAP,: No Vital Signs Date Time Temp Pulse Resp B/P (MAP) Pulse Ox O2 Delivery O2 Flow Rate FiO2 12/24/24 14:35 98.1 97 16 129/70 97 98.1 Laboratory Tests Test 12/24/24 15:51 White Blood Count 9.0 10^3/uL (4.4-10.8) Departure 1 Departure Time of Disposition: 17:22 (Patient has a abnormal uterine bleeding during her period. We will prescribe patient medication have her follow up with OBGYN.) Impression: Primary Impression: Abnormal uterine bleeding Disposition: 01 HOME / SELF CARE / HOMELESS Condition: Stable Referrals: XIOMARA RICHARDSON DO Additional Instructions: You were prescribed medications to help with the bleeding. Please take as directed. You were referred to [facility] Superintendent. Please call for an appointment, e-Prescriptions Tranexamic Acid (TRANEXAMIC ACID) 650 Mg Tab 1300 MG PO TID for 3 Days, #18 TAB Prov: ALEXIS LAWTON MD 12/24/24 Critical Care Note Critical Care Time?: No Stability Stability form required: No I personally scribed for ALEXIS LAWTON MD ([email or web address]) on 12/24/24 at 15:27. Electronically submitted by Devon Wild ([email or web address]). ALEXIS LAWTON MD Dec 24, 2024 15:27
[2024-12-24 16:03] LABS: Hematocrit 38.4 % (36.0-46.0); Hemoglobin 13.1 g/dL (12.2-16.2); Mean Corpuscular Hemoglobin 29.5 pg (28.0-32.0); Mean Corpuscular Volume 86.3 fL (80.0-100.0); Nucleated Red Blood Cells % 0.1 %
[2024-12-24 16:09] LABS: Chloride 105 mmol/L (98-107); Sodium 140 mmol/L (136-145)
[2024-12-24 16:10] LABS: Anion Gap 11 (5-15); Carbon Dioxide 24 mmol/L (20-31)
[2024-12-24 16:11] LABS: Calcium 9.0 mg/dL (8.7-10.4)
[2024-12-24 16:12] LABS: Potassium 3.4 mmol/L (3.5-5.1)
[2024-12-24 16:16] LABS: BUN/Creatinine Ratio 11.3 (10.0-20.0); Blood Urea Nitrogen 8 mg/dL (9-23); Glucose 120 mg/dL (74-106)
[2024-12-24] MEDS ORDERED: TRAN650T5 PO ×2 (17:25→19:28)
== END 2024-12-24 18:11 | disposition home or self-care (01) ==
LOC: ER 14:30
DX: N93.9 Abnormal uterine and vaginal bleeding, unspecified (principal)
CPT/HCPCS: 36415; 80048; 85025

== ENCOUNTER 2025-03-20 16:42 | Inpatient (IN) | payer MEDICAID ==
[~2025-03-20] VITALS: Ht 165.1 cm; Wt 75.0 kg
[~2025-03-20 16:42] MED LIST changes: +TRAN650T5 PO
--- NOTE | 2025-03-20 17:10 | ED.PDOC ---
History of Present Illness HPI Comments 24F presents to the ER w/ the c/c of flank pain. Pt reports on having had a sudden onset of right sided flank pain yesterday which prompted the pt to go to [facility] and was diagnosed w/ a "Urine Infx" and was unable to get her antibiotics due from being 9 weeks . The pt was sent home with some pain meds, and was told to call her OBGYN but they didnt answer. The pt woke up today w/ worsening/persistent right flank pain which prompted the pt to go to the ER. Denies any symptoms at this time. Patient denies any CP, SOB, dizziness, numbness, weakness, tingling, fever, chills, or recent fall. Chief Complaint: Flank Pain Time Seen by MD: 17:00 Primary Care Provider: NONE Reviewed Notes: Nurses Notes, Medications, Allergies Allergies: Coded Allergies: NO KNOWN ALLERGIES (Unverified , 08/27/20) Home Meds Active Scripts Tranexamic Acid (TRANEXAMIC ACID) 650 Mg Tab, 1300 MG PO TID for 3 Days, #18 TAB Prov:KE MARK MD 12/24/24 Tobramycin Sulfate (Tobrex) [address], 2 DROP OP QID, #5 ML Prov:KYMBERLY PALACIOS 10/25/24 Nitrofurantoin Monohydrate Mac (Macrobid) 100 Mg Cap, 100 MG PO BID for 7 Days, #14 CAP Prov:RONY CORRALES PAC 08/16/24 Ibuprofen Micronized (Ibuprofen) 800 Mg Tab, 800 MG PO Q8HP PRN, #20 TAB Prov:RONY CORRALES PAC 08/16/24 Cefdinir (Cefdinir) 300 Mg Cap, 1 CAP PO BID for 7 Days, #14 CAP Prov:CALEB SARMIENTO RESIDENT 10/18/23 Acetaminophen (Acetaminophen) 500 Mg Tab, 500 MG PO QIDPRN PRN for 10 Days, #40 TAB Prov:BERTO PIERRE DO 07/01/23 Ferrous Sulfate (FERROUS SULFATE) 325 Mg Tb, 1 TAB PO DAILY, #30 TAB 3 Refills Prov:RONY CORRALES PAC 11/13/22 Phenylephrine-Mineral Oil-Patrice (Hemorrhoidal 0.25-14-74.9 %) 1 Oin Oin, 1 OIN [place] PRN for 20 Days, OIN Prov:KISHORE HAYES [facility] 06/03/22 Ascorbic Acid (Vitamin C) 500 Mg Tab, 500 MG PO DAILY for 60 Days, #60 TAB Prov:KISHORE HAYES [facility] 06/02/22 Ferrous Sulfate (FERROUS SULFATE) 325 Mg Tb, 325 MG PO DAILY for 60 Days, #60 TAB Prov:KISHORE HAYES [facility] 06/02/22 Witch Tasha-Glycerin (Tucks) 1 Pad Pd, 1 PAD TOP PRN PRN for 30 Days, #1 PAD Prov:KISHORE HAYES [facility] 06/02/22 Docusate Sodium (Docusate Sodium) 100 Mg Cap, 200 MG PO HS for 10 Days, #10 CAP Prov:KISHORE HAYES [facility] 06/02/22 Reported Medications Vit W/ Ferrous Fumara ( Vitamins Plus Lo 27-1 mg) 1 Tab Tab, 1 TAB PO DAILY for SUPPLEMENT, TAB 08/27/20 Information Source: Patient Mode of Arrival: Ambulatory Severity: Moderate Timing: Hours Duration: Since onset, Hours Prehospital treatment: None Past Medical History PAST MEDICAL HISTORY: Denies Surgical History: Denies all surgeries [employer] History: No Pertinent [employer] History Family History Family History: Reviewed,noncontributory to illness, Unknown Social History Smoker: Non-Smoker Alcohol: Denies ETOH Use Drugs: Denies Drug Use Lives In: Home Constitutional: denies: chills, diaphoresis, fatigue, fever, malaise, sweats, weakness, others EENTM: denies: blurred vision, double vision, ear bleeding, ear discharge, ear drainage, ear pain, ear ringing, eye pain, eye redness, hearing loss, mouth pain, mouth swelling, nasal discharge, nose bleeding, nose congestion, nose pain, photophobia, tearing, throat pain, throat swelling, voice changes, others Respiratory: denies: cough, hemoptysis, orthopnea, SOB at rest, shortness of breath, SOB with excertion, stridor, wheezing, others Cardiovascular: denies: chest pain, dizzy spells, diaphoresis, Dyspnea on exertion, edema, irregular heart beat, left arm pain, lightheadedness, palpitations, PND, syncope, others Gastrointestinal: denies: abdomen distended, abdominal pain, blood streaked bowels, constipated, diarrhea, dysphagia, difficulty swallowing, hematemesis, melena, nausea, poor appetite, poor fluid intake, rectal bleeding, rectal pain, vomiting, others Genitourinary: reports: flank pain; denies: abnormal vagina bleeding, burning, dyspareunia, dysuria, frequency, hematuria, incontinence, pain, , vagina discharge, urgency, others Neurological: denies: dizziness, fainting, headache, left sided numbness, left sided weakness, numbness, paresthesia, pre-existing deficit, right sided numbness, right sided weakness, seizure, speech problems, tingling, tremors, weakness, others Musculoskeletal: denies: back pain, gout, joint pain, joint swelling, muscle pain, muscle stiffness, neck pain, others Integumetry: denies: bruises, change in color, change in hair/nails, dryness, laceration, lesions, lumps, rash, wounds, others Allergic/Immunocompromised: denies: Difficulty Healing, Frequent Infections, Hives, Itching, others Hematologic/Lymphatic: denies: anemia, blood clots, easy bleeding, easy bruising, swollen glands, others Endocrine: denies: excessive hunger, excessive sweating, excessive thirst, excessive urination, flushing, intolerance to cold, intolerance to heat, unexplained weight gain, unexplained weight loss, others Psychiatric: denies: anxiety, bipolar disorder, depression, hopeless, panic disorder, schizophrenia, sleepless, suicidal, others All Other Systems: Reviewed and Negative Physical Exam Exam Comments Right CVA Tenderness General Appearance: No Apparent Distress, Normal HEENT: Normal ENT Inspection, Pharynx Normal, TMs Normal Neck: Full Range of Motion, Non-Tender, Normal, Normal Inspection Respiratory: Chest Non-Tender, Lungs Clear, No Accessory Muscle Use, No Respiratory Distress, Normal Breath Sounds Cardiovascular: No Edema, No JVD, No Murmur, No Gallop, Normal Peripheral Pulses, Regular Rate/Rhythm Breast Exam: Deferred Gastrointestinal: No Organomegaly, Non Tender, No Pulsatile Mass, Normal Bowel Sounds, Soft Genitalia: Deferred Pelvic: Deferred Rectal: Deferred Extremities: No calf tenderness, Normal capillary refill, Normal inspection, Normal range of motion, Non-tender, No pedal edema Musculoskeletal : Apperance: Normal Neurologic: Alert, blade filer II-XII nml as Tested, No Motor Deficits, Normal Affect, Normal Mood, No Sensory Deficits Cerebellar Function: Normal Reflexes: Normal Skin: Dry, Normal Color, Warm Lymphatic: No Adenopathy Was a procedure done? Was a procedure done?: No Differential Dx Considerations may include: Pyelonephritis, hydronephrosis, urinary obstruction, kidney stone, UTI X-Ray, Labs, Meds, VS Vital Signs Date Time Temp Pulse Resp B/P (MAP) Pulse Ox O2 Delivery O2 Flow Rate FiO2 03/20/25 17:38 96 18 125/74 03/20/25 16:43 97.0 96 18 125/74 97 97.0 Current Medications Medications (Trade) Dose Ordered Sig/Alejandra Route Start Time Stop Time Status Last Admin Morphine Sulfate 4 mg ONCE ONCE IM 03/20/25 17:15 03/20/25 17:16 DC 03/20/25 17:38 Ondansetron HCl (Zofran Po) 4 mg ONCE ONCE PO 03/20/25 17:15 03/20/25 17:16 DC 03/20/25 17:37 X-Ray, Labs, Meds, VS Comment Ultrasound shows grade 4 hydronephrosis of the right side. Concerns of possible obstruction. Recommend urology consult in the morning, renal ultrasound radiologist's recommend CT. Patient nine weeks , CT contraindicated. Time of 1ST Reevaluation: 17:30 Reevaluation 1ST: Unchanged Patient Education/Counseling: Diagnosis, Treatment, Prognosis Family Education/Counseling: No Family Present SEPSIS Sepsis Screen Date sepsis recognized/suspect: Mar 20, 2025 Time Sepsis recognized/suspect: 1644 Recent Procedure: No On Antibiotic Therapy: No Respiratory Rate >20: No Heart Rate >90: Yes Temp<36 C (96.8 F) or >38.3 C: No SBP <90 or MAP <65 mmHG: No New Acute Mental Status Change: No Is the patient on CPAP, BIPAP,: No Physician Orders Urinalysis (03/20/25 17:13) Kidney (03/20/25 17:13) Vital Signs Date Time Temp Pulse Resp B/P (MAP) Pulse Ox O2 Delivery O2 Flow Rate FiO2 03/20/25 17:38 96 18 125/74 03/20/25 16:43 97.0 96 18 125/74 97 97.0 Medications Medications Dose Ordered Sig/Alejandra Route Start Time Stop Time Status Last Admin Dose Admin Morphine Sulfate 4 mg ONCE ONCE IM 03/20/25 17:15 03/20/25 17:16 DC 03/20/25 17:38 Ondansetron HCl 4 mg ONCE ONCE PO 03/20/25 17:15 03/20/25 17:16 DC 03/20/25 17:37 Departure 1 Departure Time of Disposition: 19:51 Impression: Primary Impression: Hydronephrosis determined by ultrasound Additional Impression: Urinary tract infection Qualified Codes: N30.01 - Acute cystitis with hematuria Disposition: ADMITTED INPATIENT Condition: Stable Discharged With: Self Critical Care Note Critical Care Time?: No Stability Stability form required: No Heart Score Heart Score: Heart Score Response (Comments) Value History N/A 0 EKG N/A 0 Age N/A 0 Risk Factors N/A 0 Troponin N/A 0 Total 0 I personally scribed for DASIA ALONZO ([email or web address]) on 03/20/25 at 17:10. Electronically submitted by Devon Wild ([email or web address]). DASIA ALONZO Mar 20, 2025 17:10
[2025-03-20] MEDS: ONDANSETRON ODT 4 MG TAB PO ONE (17:37)
[2025-03-20] MEDS: MORPHINE SULFATE 4 MG/ML SYR/VIAL IM ONE (17:38)
--- NOTE | 2025-03-20 17:56 | DVH ---
Renal ultrasound HISTORY: flank pain Comparison: Abdominal ultrasound done 10/17/2023 TECHNIQUE: 2 D ultrasound was performed with transaxial and longitudinal images. FINDINGS: Right kidney measures 12.49 cm and left kidney measures 10.07 cm. Normal renal cortical echogenicity and thickness. No renal masses or stones. There is grade 4 hydronephrosis of the right kidney. No hydronephrosis of the left kidney.. Urinary bladder is contracted. IMPRESSION: 1. Compared to previous ultrasound study there has been an increase in right- sided hydronephrosis no grade 4. Site of obstruction not seen on this exam. May consider follow-up CT study.
[2025-03-20 20:15] LABS: Urine Protein, UAD Negative (Negative)
[2025-03-20 20:39] LABS: Hematocrit 37.7 % (36.0-46.0); Hemoglobin 12.7 g/dL (12.2-16.2); Mean Corpuscular Hemoglobin 29.3 pg (28.0-32.0); Mean Corpuscular Volume 87.2 fL (80.0-100.0); Nucleated Red Blood Cells % 0.0 %
[2025-03-20 20:55] LABS: Alanine Aminotransferase 12 U/L (7-40); Albumin 4.5 g/dL (3.2-4.8); Alkaline Phosphatase 90 U/L (46-116); Anion Gap 13 (5-15); BUN/Creatinine Ratio 6.4 (10.0-20.0); Calcium 9.5 mg/dL (8.7-10.4); Carbon Dioxide 23 mmol/L (20-31); Chloride 103 mmol/L (98-107); Glucose 90 mg/dL (74-106); Potassium 3.9 mmol/L (3.5-5.1); Sodium 139 mmol/L (136-145); Total Protein 7.8 g/dL (5.7-8.2)
[2025-03-20 20:56] LABS: Bilirubin, Total 1.0 mg/dL (0.2-1.0); Blood Urea Nitrogen 6 mg/dL (9-23)
[2025-03-20] MEDS: MORPHINE SULFATE INJ 2 MG/ml SYRG IV ONE (23:30)
[2025-03-20] MEDS: MORPHINE SULFATE 4 MG/ML SYR/VIAL IV ONE (23:50)
[2025-03-21] VITALS (8 sets, daily range): BP systolic 104–120; BP diastolic 64–75; PULSE 86–102; RESP 16–18; TEMP 99.1–99.8; O2SAT 96–99
[2025-03-21] MEDS: ONDANSETRON HCL 4 MG/2 ML VIAL IV PRN (00:08)
[2025-03-21] MEDS: SODIUM CHLORIDE 0.9% 1,000 ML IV ONE ×2 (01:37→02:04)
--- NOTE | 2025-03-21 02:12 | DVH ---
OB ULTRASOUND <14 WEEKS: HISTORY: RT FLANK PAIN TECHNIQUE: Multiple real-time grayscale sonographic images of the pelvis with duplex Doppler color flow, spectral and M-mode analysis. TRANSDUCERS: Transabdominal COMPARISON: OB ULTRASOUND COMP GTR 14 WKS on DOS: 02/17/22, OBUS on DOS: 02/17/22, OBSTERICAL LIMITED on DOS: 10/01/20 FINDINGS: The uterus measures 10.6 x 7.3 x 6.7 cm Right ovary measures 2.3 x 1.6 x 1.5 cm with normal Doppler color flow. Left ovary measures 2.3 x 1.8 x 1.3 cm with normal Doppler color flow. IUP single fetus at 9 weeks 2 days average ultrasound age based on mean crown- rump length of 2.6 cm and gestational sac size of 3.8 cm heart rate detected at 172 beats per minute. Yolk sac present. IMPRESSION: 1. IUP single live fetus 9 weeks 2 days AUA corresponding to an HANNAH of 10/22/2025. No acute abnormality detected.
[2025-03-21 02:30] LABS: Thyroid Stimulating Hormone 0.58 uIU/mL (0.55-4.78)
--- NOTE | 2025-03-21 04:06 | DVHHPRES ---
History of Present Illness Resident Creating Document: MYRNA GUERRERO RESIDENT History of Present Illness Patient is a 24-year-old female with no past medical history who came to the ED with chief complaints of right-sided flank pain which is 10/10 in intensity, nonradiating, constant associated with nausea, vomiting , dysuria, hematuria, burning cessation with urination since yesterday. patient is 9 weeks and this is her 3rd . Patient went to [facility] yesterday was told she had a urinary infection and was given nitrofurantoin and pain meds on discharge. she denies any chest pain, shortness of breath, weakness, chills, fever, diarrhea, nausea, vomiting at this time. PSHx:Denies Family history: reviewed, noncontributory Social history: denies smoking, drinking, drug use Home medication: vitamin, ferrous sulfate, Allergic history: denies Obs: Dr. Ross Patient seen in [facility]. Patient complains of 10/10 right flank pain getting better with morphine. Patient denies any nausea, vomiting at this time. Review of Systems Constitutional: No: Fever, Chills, Sweats, Weakness, Malaise, Other Eyes: No: Pain, Vision change, Conjunctivae inflammation, Eyelid inflammation, Other, Redness ENT: No: Ear pain, Ear discharge, Nose pain, Nose discharge, Nose congestion, Mouth pain, Mouth swelling, Throat pain, Throat swelling, Other Respiratory: No: Cough, Dry, Shortness of breath, SOB with excertion, Wheezing, Hemoptysis, Pleuritic Pain, Sputum, Wheezing, Other Cardiovascular: No: Chest Pain, Palpitations, Orthopnea, Paroxysmal Noc. Dyspnea, Edema, Lt Headedness, Other Gastrointestinal: Nausea, Vomiting; No: Abdominal Pain, Diarrhea, Constipation, Melena, Hematochezia, Other Genitourinary: Dysuria, Frequency, Hematuria Musculoskeletal: No: other, neck pain, shoulder pain, arm pain, back pain, hand pain, leg pain, foot pain Skin: No: Rash, Lesions, Jaundice, Bruising, Other Neurological: No: Weakness, Numbness, Incoordination, Change in speech, Confusion, Seizures, Other Allergies: Coded Allergies: NO KNOWN ALLERGIES (Unverified , 08/27/20) Medications Current Medications Medications Dose Ordered Sig/Aleajndra Route Start Time Stop Time Status Last Admin Dose Admin Ondansetron HCl 4 mg Q4HP PRN IV 03/20/25 23:45 03/21/25 00:08 4 MG Acetaminophen 650 mg Q6HR PO 03/21/25 06:00 Morphine Sulfate 2 mg Q6HPRN PRN IV 03/21/25 01:30 Ceftriaxone Sodium 50 ml @ 100 mls/hr DAILY@09 IV 03/22/25 09:00 Exam Vital Signs Vital Signs Date Time Temp Pulse Resp B/P (MAP) Pulse Ox O2 Delivery O2 Flow Rate FiO2 03/21/25 00:43 99.1 96 16 102/71 (81) 96 99.1 Exam General: Patient alert and oriented in person, place and time. Patient following commands. in moderate distress HEENT: Normocephalic, atraumatic, moist mucous membranes Respiratory/pulmonary: Clear lungs bilaterally, vesicular murmurs present in almost all lung rodriugez, no associated crackles or wheezes. Cardiovascular: Normal heart sounds S1 and S2 with no associated murmurs Abdomen: Right-sided flank tenderness Extremities: There is no peripheral edema present at the lower extremities. Peripheral Pulses: 3+ Radial (R). 3+ Radial (L). 3+ Dorsalis pedis (R). 3+ Dorsalis pedis(L) Skin: No rashes or pruritus, there is no sacral edema present at this time. Neurological: Intact cranial nerves with no focal neurologic deficits Labs/Xrays Labs Test 03/21/25 01:32 03/20/25 20:06 03/20/25 17:34 Range/Units Lactic Acid Level 0.9 0.4-2.0 mmol/L Thyroid Stimulating Hormone (TSH) 0.58 0.55-4.78 uIU/mL White Blood Count 15.2 H 4.4-10.8 10^3/uL Red Blood Count 4.32 4.0-5.20 10^6/uL Hemoglobin 12.7 12.2-16.2 g/dL Hematocrit 37.7 36.0-46.0 % Mean Corpuscular Volume 87.2 80.0-100.0 fL Mean Corpuscular Hemoglobin 29.3 28.0-32.0 pg Mean Corpuscular Hemoglobin Concent 33.6 32.0-36.0 g/dL Red Cell Distribution Width 13.6 11.8-14.3 % Platelet Count 274 140-450 10^3/uL Mean Platelet Volume 8.5 6.9-10.8 fL Neutrophils (%) (Auto) 85.9 H 37.0-80.0 % Lymphocytes (%) (Auto) 8.7 L 10.0-50.0 % Monocytes (%) (Auto) 4.9 0.0-12.0 % Eosinophils (%) (Auto) 0.3 0.0-7.0 % Basophils (%) (Auto) 0.2 0.0-2.0 % Neutrophils # (Auto) 13.1 H 1.6-8.6 10 ^3/uL Lymphocytes # (Auto) 1.3 0.4-5.4 10 ^3/uL Monocytes # (Auto) 0.7 0-1.3 10 ^3/uL Eosinophils # (Auto) 0 0-0.8 10 ^3/uL Basophils # (Auto) 0 0-0.2 10 ^3/uL Nucleated Red Blood Cells 0.0 % Sodium Level 139 136-145 mmol/L Potassium Level 3.9 3.5-5.1 mmol/L Chloride Level 103 98-107 mmol/L Carbon Dioxide Level 23 20-31 mmol/L Anion Gap 13 5-15 Blood Urea Nitrogen 6 L 9-23 mg/dL Creatinine 0.94 0.550-1.02 mg/dL Glomerular Filtration Rate Calc 86 >90 mL/min BUN/Creatinine Ratio 6.4 L 10.0-20.0 Serum Glucose 90 74-106 mg/dL Calcium Level 9.5 8.7-10.4 mg/dL Total Bilirubin 1.0 0.2-1.0 mg/dL Aspartate Amino Transferase (AST) 13 13-40 U/L Alanine Aminotransferase (ALT) 12 7-40 U/L Alkaline Phosphatase 90 46-116 U/L Total Protein 7.8 5.7-8.2 g/dL Albumin 4.5 3.2-4.8 g/dL Urine Color Yellow Yellow Urine Clarity Clear Clear Urine pH 6.0 5.0-9.0 Urine Specific [place] 1.026 1.001-1.035 Urine Protein Negative Negative Urine Ketones 1+ H Negative Urine Blood 1+ H Negative /uL Urine Nitrite Negative Negative Urine Bilirubin Negative Negative Urine Urobilinogen Normal Negative mg/dL Urine Leukocyte Esterase 1+ Negative /uL Urine RBC 43 0 - 4 /hpf Urine Microscopic WBC 7 H 0-5 /HPF Urine Squamous Epithelial Cells Few <5 /hpf Urine Bacteria Few H None Seen /hpf Urine Glucose Normal Normal mg/dL SEPSIS Sepsis Screen Date sepsis recognized/suspect: Mar 20, 2025 Time Sepsis recognized/suspect: 1644 Recent Procedure: No On Antibiotic Therapy: No Respiratory Rate >20: No Heart Rate >90: Yes Temp<36 C (96.8 F) or >38.3 C: No SBP <90 or MAP <65 mmHG: No New Acute Mental Status Change: No Is the patient on CPAP, BIPAP,: No Physician Orders Admit (03/20/25 23:42) Code Status (03/20/25 23:42) Ondansetron Hcl (Zofran) (03/20/25 23:45) Complete Blood Count (03/21/25 04:00) Comprehensive Metabolic Panel (03/21/25 04:00) Condition: Serious (03/20/25 23:42) Stat Ekg For Chest Pain (03/20/25 23:42) Notify Md Of Changes From Base (03/20/25 23:42) Door To Door Lead Generation For 24 Hours (03/20/25 23:42) Emergency Dysrhythmia Protocol (03/20/25 23:42) Rhythm Strips Once Every Shift (03/20/25 23:42) Urine Bacterial Culture (03/21/25 01:07) Blood Culture (03/21/25 01:07) Thyroid Stimulating Hormone (03/21/25 01:07) Beta Hcg, Quantitative (03/21/25 01:07) Drug Screen (03/21/25 01:07) Acetaminophen Tablet (Tylenol Tablet) (03/21/25 06:00) Ceftriaxone 1gm/50ml (Rocephin) (03/22/25 09:00) Morphine Sulfate Injection (03/21/25 01:30) Sodium Chloride 0.9% (03/21/25 01:30) Ob Ultrasound Comp Less 14wks (03/21/25 01:07) Vital Signs Date Time Temp Pulse Resp B/P (MAP) Pulse Ox O2 Delivery O2 Flow Rate FiO2 03/21/25 00:43 99.1 96 16 102/71 (81) 96 99.1 03/20/25 23:50 80 16 117/67 Laboratory Tests Test 03/20/25 20:06 03/21/25 01:32 White Blood Count 15.2 10^3/uL (4.4-10.8) H Lactic Acid Level 0.9 mmol/L (0.4-2.0) Medications Medications Dose Ordered Sig/Alejandra Route Start Time Stop Time Status Last Admin Dose Admin Ceftriaxone Sodium 50 ml @ 100 mls/hr ONCE ONCE IV 03/21/25 01:15 03/21/25 01:44 DC 03/21/25 02:06 100 MLS/HR Morphine Sulfate 2 mg ONCE ONCE IV 03/20/25 23:45 03/20/25 23:46 DC 03/20/25 23:50 2 MG Morphine Sulfate 4 mg ONCE ONCE IM 03/20/25 17:15 03/20/25 17:16 DC 03/20/25 17:38 4 MG Ondansetron HCl 4 mg ONCE ONCE PO 03/20/25 17:15 03/20/25 17:16 DC 03/20/25 17:37 4 MG Ondansetron HCl 4 mg Q4HP PRN IV 03/20/25 23:45 03/21/25 00:08 4 MG Sodium Chloride 1,000 ml @ 1,000 mls/hr Q1H ONCE IV 03/21/25 01:30 03/21/25 02:29 DC 03/21/25 01:37 1,000 MLS/HR Assessment/Plan Assessment/Plan Sepsis due to acute complicated UTI Acute complicated UTI Possible obstructive hydronephrosis Renal ultrasound showed increase in right-sided hydronephrosis no grade 4. Site of obstruction not seen on this exam. May consider follow-up CT study. - check beta HCG -iv ceftriaxone -pain management -IV fluids -TSH -Urine, blood cultures -Lactic acid regular diet Goals of care addressed with the patient for more than 27 minutes: Full code status Case discussed with Dr. Cole , patient and nurse Plan discussed with: Patient My Orders Orders - MYRNA GUERRERO RESIDENT Procedure Category Date Status Time Admit ADMIT 03/20/25 Transmitted 23:42 Code Status CODE 03/20/25 Transmitted 23:42 Ondansetron Hcl PHA 03/20/25 In Process (Zofran) 23:45 Complete Blood Count LAB 03/21/25 Logged 04:00 Comprehensive LAB 03/21/25 Logged Metabolic Panel 04:00 Condition: Serious JOSE 03/20/25 In Process 23:42 Stat Ekg For Chest [facility] 03/20/25 In Process Pain 23:42 Notify Md Of Changes JOSE 03/20/25 In Process From Base 23:42 Door To Door Lead Generation For [facility] 03/20/25 In Process 24 Hours 23:42 Emergency Dysrhythmia [facility] 03/20/25 In Process Protocol 23:42 Rhythm Strips Once JOSE 03/20/25 In Process Every Shift 23:42 Urine Bacterial TORREY 03/21/25 Logged Culture 01:07 Blood Culture TORREY 03/21/25 In Process 01:07 Thyroid Stimulating LAB 03/21/25 In Process Hormone 01:07 Beta Hcg, Quantitative LAB 03/21/25 In Process 01:07 Drug Screen LAB 03/21/25 Logged 01:07 Acetaminophen Tablet PHA 03/21/25 In Process (Tylenol Tablet) 06:00 Ceftriaxone 1gm/50ml PHA 03/22/25 In Process (Rocephin) 09:00 Morphine Sulfate PHA 03/21/25 In Process Injection 01:30 Sodium Chloride 0.9% PHA 03/21/25 In Process 01:30 Ob Ultrasound Comp US 03/21/25 Resulted Less 14wks 01:07 Visit Coding STANDARD RES Billing Provider: KENNY COLE MD Date of Service if different f: Mar 21, 2025 Common Visit Codes: 44283-HLJXGIK INP/OBS CARE (HIGH) Secondary Visit Codes: [id number] CARE PLAN 30 MINUTES MYRNA GUERRERO RESIDENT Mar 21, 2025 04:06
[2025-03-21 05:01] LABS: Amphetamine Screen, Urine Neg (NEGATIVE); Barbiturate Scree,Urine Neg (NEGATIVE); Benzodiazephine Screen, Urine Neg (NEGATIVE); Cannabinoid Screen, Urine Neg (NEGATIVE); Cocaine Screen, Urine Neg (NEGATIVE); Opiate Scree,Urine Pos (NEGATIVE); Phencyclidine Screen, Urine Neg (NEGATIVE)
[2025-03-21 05:48] LABS: Hematocrit 34.5 % (36.0-46.0); Hemoglobin 11.7 g/dL (12.2-16.2); Mean Corpuscular Hemoglobin 29.7 pg (28.0-32.0); Mean Corpuscular Volume 87.5 fL (80.0-100.0); Nucleated Red Blood Cells % 0.0 %
[2025-03-21 06:09] LABS: Alanine Aminotransferase 14 U/L (7-40); Alkaline Phosphatase 86 U/L (46-116); Anion Gap 12 (5-15); BUN/Creatinine Ratio 9.1 (10.0-20.0); Calcium 8.7 mg/dL (8.7-10.4); Carbon Dioxide 20 mmol/L (20-31); Chloride 105 mmol/L (98-107); Glucose 96 mg/dL (74-106); Potassium 4.4 mmol/L (3.5-5.1); Sodium 137 mmol/L (136-145); Total Protein 6.9 g/dL (5.7-8.2)
[2025-03-21 06:10] LABS: Albumin 4.1 g/dL (3.2-4.8); Bilirubin, Total 0.9 mg/dL (0.2-1.0)
[2025-03-21] MEDS: MORPHINE SULFATE 4 MG/ML SYR/VIAL IV PRN ×3 (06:12→16:52)
[2025-03-21] MEDS: ACETAMINOPHEN 325 MG TAB PO SCH (06:12)
[2025-03-21 06:13] LABS: Blood Urea Nitrogen 7 mg/dL (9-23)
[2025-03-21 09:52] LABS: INR 0.99 (0.9-1.15); Partial Thromboplastin Time 26.8 SEC (24.5-34.5); Prothrombin Time 10.5 sec (9.3-11.8)
--- NOTE | 2025-03-21 10:11 | DVHINCON2 ---
Date of service: Mar 21, [address] Krishnan Reason for Consultation right sided hydro in female with UTI History of Present Illness History Source: Patient, RN Notes, MD Notes Exam Limitations: No limitations HPI 24 yo female currently 9 weeks presented to the ER with acute onset right flank pain. US shows severe right sided hydro. Pt is known to urology service for chronic right hydro without obstruction. 01/2024 renal scan showed symmetrical function with no obstruction and patulous right kidney. She was scheduled to have CT urogram to rule out duplicated collecting system but was lost to follow up and then became . She was seen at [facility] yesterday for flank pain and UTI symptoms. She was d/c with abx but was not feeling any better. [facility] ucx 03/20/25 was gram positive shannan 30,000 CFU. WBC was 14 with left shift now 7. Home Meds Active Scripts Tranexamic Acid (TRANEXAMIC ACID) 650 Mg Tab, 1300 MG PO TID for 3 Days, #18 TAB Prov:KE MARK MD 12/24/24 Tobramycin Sulfate (Tobrex) [address], 2 DROP OP QID, #5 ML Prov:KYMBERLY PALACIOS 10/25/24 Nitrofurantoin Monohydrate Mac (Macrobid) 100 Mg Cap, 100 MG PO BID for 7 Days, #14 CAP Prov:RONY CORRALES PAC 08/16/24 Ibuprofen Micronized (Ibuprofen) 800 Mg Tab, 800 MG PO Q8HP PRN, #20 TAB Prov:RONY CORRALES PAC 08/16/24 Cefdinir (Cefdinir) 300 Mg Cap, 1 CAP PO BID for 7 Days, #14 CAP Prov:CALEB SARMIENTO 10/18/23 Acetaminophen (Acetaminophen) 500 Mg Tab, 500 MG PO QIDPRN PRN for 10 Days, #40 TAB Prov:BERTO PIERRE DO 07/01/23 Ferrous Sulfate (FERROUS SULFATE) 325 Mg Tb, 1 TAB PO DAILY, #30 TAB 3 Refills Prov:RONY CORRALES PAC 11/13/22 Phenylephrine-Mineral Oil-Patrice (Hemorrhoidal 0.25-14-74.9 %) 1 Oin Oin, 1 OIN [place] PRN for 20 Days, OIN Prov:KISHORE HAYES [facility] 06/03/22 Ascorbic Acid (Vitamin C) 500 Mg Tab, 500 MG PO DAILY for 60 Days, #60 TAB Prov:KISHORE HAYES [facility] 06/02/22 Ferrous Sulfate (FERROUS SULFATE) 325 Mg Tb, 325 MG PO DAILY for 60 Days, #60 TAB Prov:KISHORE HAYES [facility] 06/02/22 Witch Tasha-Glycerin (Tucks) 1 Pad Pd, 1 PAD TOP PRN PRN for 30 Days, #1 PAD Prov:KISHORE HAYES [facility] 06/02/22 Docusate Sodium (Docusate Sodium) 100 Mg Cap, 200 MG PO HS for 10 Days, #10 CAP Prov:KISHORE HAYES [facility] 06/02/22 Reported Medications Vit W/ Ferrous Fumara ( Vitamins Plus Lo 27-1 mg) 1 Tab Tab, 1 TAB PO DAILY for SUPPLEMENT, TAB 08/27/20 Past Medical History Renal/: UTI Others chronic right sided hydronephrosis, 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 Patient Family History: Diabetes mellitus G8 MOTHER Smoker: No Hx (Negative) Alocohol: None Drugs: None Domestic Violence: Neg Review of Systems Genitourinary: Dysuria, Pain H&P Exam Vital Signs Vital Signs Date Time Temp Pulse Resp B/P (MAP) Pulse Ox O2 Delivery O2 Flow Rate FiO2 03/21/25 08:32 98.2 03/21/25 08:30 86 16 111/78 03/21/25 08:19 98 03/21/25 08:19 Room Air* 0 21 General Appeara: Well developed, Well nourished, Normal Appearance, Mild distress Pulmonary/Respiratory: Normal inspection Cardiovascular/Chest: Normal inspection Abdominal Pain Onset Location: Flank Neuro/Mental St: Alert, Oriented Appearance: Appropriate appearance, Appropriate insight Eye contact/ Speech: Cooperative, Good eye contact, Normal speech Labs/Xrays [address] [address] Ph: [phone] DIAGNOSTIC IMAGING Diagnostic Imaging Report : [id number] Signed PATIENT: BROOKLYNN FREDERICKCT: [id number] UNIT: [id number] : 2000 LOC: ER ROOM / BED: / AGE / SEX: 24 / F ADM STATUS: REG ER SERVICE 1713 ORDERING PHYSICIAN: DASIA ALONZO PROCEDURE(s): KIDUS - KIDNEY REASON: flank pain ORDER NUMBER(s): [id number], ACCESSION NUMBER(s): [id number] Renal ultrasound HISTORY: flank pain Comparison: Abdominal ultrasound done 10/17/2023 TECHNIQUE: 2 D ultrasound was performed with transaxial and longitudinal images. FINDINGS: Right kidney measures 12.49 cm and left kidney measures 10.07 cm. Normal renal cortical echogenicity and thickness. No renal masses or stones. There is grade 4 hydronephrosis of the right kidney. No hydronephrosis of the left kidney.. Urinary bladder is contracted. IMPRESSION: 1. Compared to previous ultrasound study there has been an increase in right-s ided hydronephrosis no grade 4. Site of obstruction not seen on this exam. May consider follow-up CT study. ATED BY: ARIELLA GARDNER MD DICTATED DATE/TIME: 03/20/251753 SIGNED BY: ARIELLA GARDNER MD SIGNED DATE/TIME: 03/20/251753 CC: Labs Test 03/21/25 09:16 03/21/25 05:38 03/21/25 01:32 03/20/25 17:34 Range/Units White Blood Count 15.1 H 4.4-10.8 10^3/uL Red Blood Count 3.94 L 4.0-5.20 10^6/uL Hemoglobin 11.7 L 12.2-16.2 g/dL Hematocrit 34.5 L 36.0-46.0 % Mean Corpuscular Volume 87.5 80.0-100.0 fL Mean Corpuscular Hemoglobin 29.7 28.0-32.0 pg Mean Corpuscular Hemoglobin Concent 33.9 32.0-36.0 g/dL Red Cell Distribution Width 13.7 11.8-14.3 % Platelet Count 249 140-450 10^3/uL Mean Platelet Volume 8.3 6.9-10.8 fL Neutrophils (%) (Auto) 87.5 H 37.0-80.0 % Lymphocytes (%) (Auto) 7.4 L 10.0-50.0 % Monocytes (%) (Auto) 4.8 0.0-12.0 % Eosinophils (%) (Auto) 0.2 0.0-7.0 % Basophils (%) (Auto) 0.1 0.0-2.0 % Neutrophils # (Auto) 13.2 H 1.6-8.6 10 ^3/uL Lymphocytes # (Auto) 1.1 0.4-5.4 10 ^3/uL Monocytes # (Auto) 0.7 0-1.3 10 ^3/uL Eosinophils # (Auto) 0 0-0.8 10 ^3/uL Basophils # (Auto) 0 0-0.2 10 ^3/uL Nucleated Red Blood Cells 0.0 % Sodium Level 137 136-145 mmol/L Potassium Level 4.4 3.5-5.1 mmol/L Chloride Level 105 98-107 mmol/L Carbon Dioxide Level 20 20-31 mmol/L Anion Gap 12 5-15 Blood Urea Nitrogen 7 L 9-23 mg/dL Creatinine 0.77 0.550-1.02 mg/dL Glomerular Filtration Rate Calc 110 >90 mL/min BUN/Creatinine Ratio 9.1 L 10.0-20.0 Serum Glucose 96 74-106 mg/dL Calcium Level 8.7 8.7-10.4 mg/dL Total Bilirubin 0.9 0.2-1.0 mg/dL Aspartate Amino Transferase (AST) 22 13-40 U/L Alanine Aminotransferase (ALT) 14 7-40 U/L Alkaline Phosphatase 86 46-116 U/L Total Protein 6.9 5.7-8.2 g/dL Albumin 4.1 3.2-4.8 g/dL Lactic Acid Level 0.9 0.4-2.0 mmol/L Magnesium Level 1.8 1.6-2.6 mg/dL Thyroid Stimulating Hormone (TSH) 0.58 0.55-4.78 uIU/mL Beta HCG, Quantitative 444927.2 H 1.5-4.2 mIU/mL Urine Color Yellow Yellow Urine Clarity Clear Clear Urine pH 6.0 5.0-9.0 Urine Specific [place] 1.026 1.001-1.035 Urine Protein Negative Negative Urine Ketones 1+ H Negative Urine Blood 1+ H Negative /uL Urine Nitrite Negative Negative Urine Bilirubin Negative Negative Urine Urobilinogen Normal Negative mg/dL Urine Leukocyte Esterase 1+ Negative /uL Urine RBC 43 0 - 4 /hpf Urine Microscopic WBC 7 H 0-5 /HPF Urine Squamous Epithelial Cells Few <5 /hpf Urine Bacteria Few H None Seen /hpf Urine Glucose Normal Normal mg/dL Urine Opiates Screen Pos NEGATIVE Urine Fentanyl Screen Neg NEGATIVE Urine Barbiturates Screen Neg NEGATIVE Urine Phencyclidine Screen Neg NEGATIVE Urine Amphetamines Screen Neg NEGATIVE Urine Benzodiazepines Screen Neg NEGATIVE Urine Cocaine Screen Neg NEGATIVE Urine Cannabinoids Screen Neg NEGATIVE Assessment/Plan Problem List: (1) Hydronephrosis determined by ultrasound (2) Normal Plan Given first trimester , intractable pain and evidence of infection patient meets criteria for suspected obstructed pyelonephritis given severe unilateral hydronephrosis and neutrophilic leukocytosis. Physiologic hydronephrosis is unlikely at 9 weeks gestation. IV abx per primary team OB consult IVFs monitor renal function pain meds prn avoid NSAIDs Urgent IR consult for US guided right PCN Bladder US to check for ureteral jetting Plan discussed with: Patient, Other NIKHIL BROOKS NP Mar 21, 2025 10:11
[2025-03-21] MEDS: SODIUM CHLORIDE 0.9% 1,000 ML IV SCH (13:46)
--- NOTE | 2025-03-21 14:53 | DVH ---
TECHNIQUE: Real-time ultrasound images through the bladder using a transabdominal transducer. INDICATION: ureteral jets COMPARISON: None FINDINGS: Bladder volume 403 cc. No focal bladder wall thickening seen. Ureteral jet seen bilaterally. IMPRESSION: Bilateral ureteral jets visualized. Distended bladder.
[2025-03-21] MEDS: TAMSULOSIN HYDROCHLORIDE 0.4 MG CAP PO SCH (16:52)
--- NOTE | 2025-03-21 19:06 | DVHDSRES ---
Discharge Summary Date of Admission Resident Creating Document: BRIDGETTE MOSHER RESIDENT Mar 20, 2025 at 23:42 Date of Discharge: Mar 21, 2025 Admitting Diagnosis #Sepsis due to complicated acute UTI possible due to pyelonephritis in on the 1st trimester #Possible acute pyelonephritis #Possible Nephrolithiasis of the right kidney #Right Kidney Hydronephrosis grade 4 #Intractable abdominal pain due to the above. #PO intolerance # on first trimester Wounds: No wound during admission. Labs/Diagnostic Data: Laboratory Results Test 03/21/25 09:16 03/21/25 05:38 03/21/25 01:32 03/20/25 17:34 Prothrombin Time 10.5 sec (9.3-11.8) Prothrombin Time INR 0.99 (0.9-1.15) Activated Partial Thromboplast Time 26.8 SEC (24.5-34.5) White Blood Count 15.1 10^3/uL (4.4-10.8) Red Blood Count 3.94 10^6/uL (4.0-5.20) Hemoglobin 11.7 g/dL (12.2-16.2) Hematocrit 34.5 % (36.0-46.0) Mean Corpuscular Volume 87.5 fL (80.0-100.0) Mean Corpuscular Hemoglobin 29.7 pg (28.0-32.0) Mean Corpuscular Hemoglobin Concent 33.9 g/dL (32.0-36.0) Red Cell Distribution Width 13.7 % (11.8-14.3) Platelet Count 249 10^3/uL (140-450) Mean Platelet Volume 8.3 fL (6.9-10.8) Neutrophils (%) (Auto) 87.5 % (37.0-80.0) Lymphocytes (%) (Auto) 7.4 % (10.0-50.0) Monocytes (%) (Auto) 4.8 % (0.0-12.0) Eosinophils (%) (Auto) 0.2 % (0.0-7.0) Basophils (%) (Auto) 0.1 % (0.0-2.0) Neutrophils # (Auto) 13.2 10 ^3/uL (1.6-8.6) Lymphocytes # (Auto) 1.1 10 ^3/uL (0.4-5.4) Monocytes # (Auto) 0.7 10 ^3/uL (0-1.3) Eosinophils # (Auto) 0 10 ^3/uL (0-0.8) Basophils # (Auto) 0 10 ^3/uL (0-0.2) Nucleated Red Blood Cells 0.0 % Sodium Level 137 mmol/L (136-145) Potassium Level 4.4 mmol/L (3.5-5.1) Chloride Level 105 mmol/L (98-107) Carbon Dioxide Level 20 mmol/L (20-31) Anion Gap 12 (5-15) Blood Urea Nitrogen 7 mg/dL (9-23) Creatinine 0.77 mg/dL (0.550-1.02) Glomerular Filtration Rate Calc 110 mL/min (>90) BUN/Creatinine Ratio 9.1 (10.0-20.0) Serum Glucose 96 mg/dL (74-106) Calcium Level 8.7 mg/dL (8.7-10.4) Total Bilirubin 0.9 mg/dL (0.2-1.0) Aspartate Amino Transferase (AST) 22 U/L (13-40) Alanine Aminotransferase (ALT) 14 U/L (7-40) Alkaline Phosphatase 86 U/L (46-116) Total Protein 6.9 g/dL (5.7-8.2) Albumin 4.1 g/dL (3.2-4.8) Folic Acid 19.59 ng/mL (>5.38) Lactic Acid Level 0.9 mmol/L (0.4-2.0) Magnesium Level 1.8 mg/dL (1.6-2.6) Thyroid Stimulating Hormone (TSH) 0.58 uIU/mL (0.55-4.78) Beta HCG, Quantitative 374617.2 mIU/mL Urine Color Yellow (Yellow) Urine Clarity Clear (Clear) Urine pH 6.0 (5.0-9.0) Urine Specific [place] 1.026 (1.001-1.035) Urine Protein Negative (Negative) Urine Ketones 1+ (Negative) Urine Blood 1+ /uL (Negative) Urine Nitrite Negative (Negative) Urine Bilirubin Negative (Negative) Urine Urobilinogen Normal mg/dL (Negative) Urine Leukocyte Esterase 1+ /uL (Negative) Urine RBC 43 /hpf (0 - 4) Urine Microscopic WBC 7 /HPF (0-5) Urine Squamous Epithelial Cells Few /hpf (<5) Urine Bacteria Few /hpf (None Seen) Urine Glucose Normal mg/dL (Normal) Urine Opiates Screen Pos (NEGATIVE) Urine Fentanyl Screen Neg (NEGATIVE) Urine Barbiturates Screen Neg (NEGATIVE) Urine Phencyclidine Screen Neg (NEGATIVE) Urine Amphetamines Screen Neg (NEGATIVE) Urine Benzodiazepines Screen Neg (NEGATIVE) Urine Cocaine Screen Neg (NEGATIVE) Urine Cannabinoids Screen Neg (NEGATIVE) Other Laboratory Tests 03/21/25 05:38 Brief Hx & Hospital Course: Shelia Flores is a 24-year-old female with no past medical history. The patient came to [facility] ED with chief complaint of 1 day of flank pain, localized in the right side, 10/10 in intensity, stabbing like, continues, irradiating to the back, associated with chills, subjective fever, nausea, vomiting #2, and dysuria. The patient reports she is 9 weeks (LMP 01/1425, due date 10/22/2024), this is her 3rd . On further questioning, the patient reported she went to [facility] 03/20/25 and was told she had a urinary infection and was given Nitrofurantoin and pain meds on discharge without any improvement, this prompted her visit to the ED. she denies any vaginal bleeding, vaginal discharge, pelvic pain, chest pain, shortness of breath, weakness, diarrhea or other symptoms. In the ED an US was performed reporting grade 4 right kidney hidroneprhosis. The patient was started on IV antibiotics and admitted for further assessment and management. PSHx:Denies Family history: reviewed, noncontributory Social history: denies smoking, drinking, drug use Home medication: vitamin, ferrous sulfate, Allergic history: denies PCP: Dunia KLEINN: Dr. Vandana Brice course: On 03/21/25, the patient was seen and evaluated bedside. Vital signs, labs chart was reviewed. The patient reports improvement of right flank pain with analgesic. Patient denies any nausea, vomiting at this time. Urology is onboard, they recommend nephrostomy tube placement. Due to the patient is in her 1st trimester of , Dr. Vandana MARKS was consulted, transfer to higher level of care was advised. The patient will be transfer to [place], the patient was accepted to [facility] under Candis Cyr to [address], just waiting for a bed and number for report. Auth number for Hospital is [id number], provided by Lexi at [facility]. The documentation has been signed, patient awaiting for transfer. The patient will follow up with d/c clinic, PCP and OBGYN upon discharge from [facility]. ROS: Constitutional: No: Fever, Chills, Sweats, Weakness, Malaise, Other Eyes: No: Pain, Vision change, Conjunctivae inflammation, Eyelid inflammation, Other, Redness ENT: No: Ear pain, Ear discharge, Nose pain, Nose discharge, Nose congestion, Mouth pain, Mouth swelling, Throat pain, Throat swelling, Other Respiratory: No: Cough, Dry, Shortness of breath, SOB with excertion, Wheezing, Hemoptysis, Pleuritic Pain, Sputum, Wheezing, Other Cardiovascular: No: Chest Pain, Palpitations, Orthopnea, Paroxysmal Noc. Dyspnea, Edema, Lt Headedness, Other Gastrointestinal: Nausea, Vomiting; Abdominal Pain, back pain, denies Diarrhea, Constipation, Melena, Hematochezia, Other Genitourinary: Dysuria, Frequency. Musculoskeletal: No: other, neck pain, shoulder pain, arm pain, back pain, hand pain, leg pain, foot pain Skin: No: Rash, Lesions, Jaundice, Bruising, Other Neurological: No: Weakness, Numbness, Incoordination, Change in speech, Confusion, Seizures, Other Physical Exam General: Patient alert and oriented in person, place and time. Patient following commands. in moderate distress HEENT: Normocephalic, atraumatic, moist mucous membranes Respiratory/pulmonary: Clear lungs bilaterally, vesicular murmurs present in almost all lung rodriguez, no associated crackles or wheezes. Cardiovascular: Normal heart sounds S1 and S2 with no associated murmurs Abdomen: Right-sided flank tenderness, Costovertebral angle positive to percussion on the right. Extremities: There is no peripheral edema present at the lower extremities. Peripheral Pulses: 3+ Radial (R). 3+ Radial (L). 3+ Dorsalis pedis (R). 3+ Dorsalis pedis(L) Skin: No rashes or pruritus, there is no sacral edema present at this time. Neurological: Intact cranial nerves with no focal neurologic deficits Consults/Reason for consult OBGYN: Patient in 1st trimester with complicated UTI Urology: Hydronephrosis grade 4 Operations or Procedures ROCEDURE(s): KIDUS - KIDNEY REASON: flank pain ORDER NUMBER(s): [id number], ACCESSION NUMBER(s): [id number] Renal ultrasound HISTORY: flank pain Comparison: Abdominal ultrasound done 10/17/2023 TECHNIQUE: 2 D ultrasound was performed with transaxial and longitudinal images. FINDINGS: Right kidney measures 12.49 cm and left kidney measures 10.07 cm. Normal renal cortical echogenicity and thickness. No renal masses or stones. There is grade 4 hydronephrosis of the right kidney. No hydronephrosis of the left kidney.. Urinary bladder is contracted. IMPRESSION: 1. Compared to previous ultrasound study there has been an increase in right- sided hydronephrosis no grade 4. Site of obstruction not seen on this exam. May consider follow-up CT study. EDURE(s): OB4US - OB ULTRASOUND COMP LESS 14WKS REASON: RT FLANK PAIN ORDER NUMBER(s): [id number], ACCESSION NUMBER(s): [id number] OB ULTRASOUND <14 WEEKS: HISTORY: RT FLANK PAIN TECHNIQUE: Multiple real-time grayscale sonographic images of the pelvis with duplex Doppler color flow, spectral and M-mode analysis. TRANSDUCERS: Transabdominal COMPARISON: OB ULTRASOUND COMP GTR 14 WKS on DOS: 02/17/22, OBUS on DOS: 02/17/22, OBSTERICAL LIMITED on DOS: 10/01/20 FINDINGS: The uterus measures 10.6 x 7.3 x 6.7 cm Right ovary measures 2.3 x 1.6 x 1.5 cm with normal Doppler color flow. Left ovary measures 2.3 x 1.8 x 1.3 cm with normal Doppler color flow. IUP single fetus at 9 weeks 2 days average ultrasound age based on mean crown- rump length of 2.6 cm and gestational sac size of 3.8 cm heart rate detected at 172 beats per minute. Yolk sac present. IMPRESSION: 1. IUP single live fetus 9 weeks 2 days AUA corresponding to an HANNAH of 10/22/2025. No acute abnormality detected. EDURE(s): BLDR - BLADDER REASON: ureteral jets ORDER NUMBER(s): [id number], ACCESSION NUMBER(s): [id number] TECHNIQUE: Real-time ultrasound images through the bladder using a transabdominal transducer. INDICATION: ureteral jets COMPARISON: None FINDINGS: Bladder volume 403 cc. No focal bladder wall thickening seen. Ureteral jet seen bilaterally. IMPRESSION: Bilateral ureteral jets visualized. Distended bladder. Condition at Discharge: Stable Final Diagnosis/Problems List #Sepsis due to complicated acute UTI possible due to pyelonephritis in on the 1st trimester #Possible acute pyelonephritis #Possible Nephrolithiasis of the right kidney #Right Kidney Hydronephrosis grade 4 #Intractable abdominal pain due to the above. #PO intolerance # on first trimester, 9 weeks Discharge Disposition: [facility] Discharge Will this Physician continue t: No Discharge Instruct/Medications Diet: See Comment Diet comment: Per new facitily Activity: No Restrictions, As Tolerated Follow Up/Referral: F/u with OBGYN (Dr. Ross) upon discharge from higher level of care. Scheduled Ascorbic Acid (Vitamin C), 500 MG PO DAILY Cefdinir (Cefdinir), 1 CAP PO BID Docusate Sodium (Docusate Sodium), 200 MG PO HS Ferrous Sulfate (Ferrous Sulfate), 325 MG PO DAILY Ferrous Sulfate (Ferrous Sulfate), 1 TAB PO DAILY Nitrofurantoin Monohydrate Mac (Macrobid), 100 MG PO BID Phenylephrine-Mineral Oil-Patrice (Hemorrhoidal 0.25-14-74.9 %), 1 OIN OH PRN Vit W/ Ferrous Fumara ( Vitamins Plus Lo 27-1 mg), 1 TAB PO DAILY, (Reported) Tobramycin Sulfate (Tobrex), 2 DROP OP QID Tranexamic Acid (Tranexamic Acid), 1,300 MG PO TID Scheduled PRN Acetaminophen (Acetaminophen), 500 MG PO QIDPRN PRN Ibuprofen Micronized (Ibuprofen), 800 MG PO Q8HP PRN Witch Tasha-Glycerin (Tucks), 1 PAD TOP PRN PRN Discharge Statement: "Patient was advised to return to the ER or call 911 if any headaches, dizziness, shortness of breath, chest pain, abdominal pain, bleeding, fevers, or worsening of medical condition. Patient was counseled about treatment plan, medications, possible side effects, patientverbalized understanding. All questions were answered to the best of my ability. This discharge took greater then 30 minutes in planning, reviewing documentation, counseling the patient, and discussing with other team members." ASSESSMENT ASSESSMENT Assessment #Sepsis due to complicated acute UTI possible due to pyelonephritis in on the 1st trimester #Possible acute pyelonephritis #Possible Nephrolithiasis of the right kidney #Right Kidney Hydronephrosis grade 4 #Intractable abdominal pain due to the above. #PO intolerance # on first trimester, 9 weeks Visit Coding STANDARD RES Billing Provider: CAROLE MALDONADO MD Date of Service if different f: Mar 21, 2025 Common Visit Codes: 73794-EWD/OBS DISCH DAY >30min BRIDGETTE MOSHER RESIDENT Mar 21, 2025 19:06
== END 2025-03-21 21:24 | disposition short-term general hospital (02) | DRG 566 ==
LOC: ER 16:42 → OVERFLOW 23:42 → TELE-EAST 03-21 15:37
PROVIDERS: ADMIT Student in an Organized Health Care Education/Training Program; ATTEND Student in an Organized Health Care Education/Training Program
DX: O98.811 Other maternal infectious and parasitic diseases complicating pregnancy, first trimester (principal); A41.9 Sepsis, unspecified organism; N13.6 Pyonephrosis; O23.01 Infections of kidney in pregnancy, first trimester; Z3A.09 9 weeks gestation of pregnancy; Z87.891 Personal history of nicotine dependence
CPT/HCPCS: 36415; 76775; 76801; 76857; 80053; 80307; 81001; 82746; 83605; 83735; 84443; 84702; 85025; 85610; 85730; 87040; 87086; 96372; G0378; J2405; Q0162